=== PATIENT | female | born 1945 | race Caucasian/White ===

== ENCOUNTER 2016-09-27 12:54 | Emergency (ER) | payer MEDICARE ==
[2016-09-27] MEDS ORDERED: FAMOTIDINE 20 MG TABLET PO ONE (13:00)
--- NOTE | 2016-09-27 13:03 | ER Document Report ---
ED Medical Screen (RME) - General Stated Complaint: POSSIBLE ALLERGIC REACTION Mode of Arrival: Ambulatory Information source: Patient Notes: 71 y/o F presents to ED c/o possible allergic reaction. Pt reports ate pancakes this mornign and subsequently developed hives and feeling like her throat was closing up. States nona to urgent care where she received 10 mg Dexamethasone and 50 mg Benadryl IM and referred to ED via EMS. States feels like she is improving. I have greeted and performed a rapid initial assessment of this patient. A comprehensive ED assessment and evaluation of the patient, analysis of test results and completion of the medical decision making process will be conducted by additional ED providers. Physical Exam - General General appearance: Appears well, Alert In distress: None - Respiratory Respiratory status: No respiratory distress
--- NOTE | 2016-09-27 15:24 | ER Document Report ---
ED General - General Chief Complaint: Allergic Reaction Stated Complaint: POSSIBLE ALLERGIC REACTION Mode of Arrival: Medic Information source: Patient Notes: Patient presents emergency department post allergic reaction. Patient reports that that this morning she ate pancakes. She reports her immediately her head start feeling congested she started sneezing and her throat/uvula started swelling. Patient reports she immediately went to urgent care by the time she reached urgent care she could not talk. She also reports the palms of her hands turned beet red. Urgent care gave her 50 mg of Medrol, 10 mg of Decadron and breathing treatment. Upon arrival to the hospital she was given 40 mg of Pepcid. Patient reports she feels much better now. She reports she has no trouble breathing and but feels like something is blocking her airway on the way out. No hives now. Patient also reports approximately 1 month ago she did have pancakes and experienced some head congestion at that time. She reports no problems breathing. TRAVEL OUTSIDE OF THE [place] IN LAST 30 DAYS: No - HPI Onset: Just prior to arrival Onset/Duration: Sudden Quality of pain: No pain Associated symptoms: None Exacerbated by: Denies Relieved by: Denies Similar symptoms previously: No Recently seen / treated by doctor: No - Related Data Allergies/Adverse Reactions: shellfish derived Allergy (Verified 09/27/16 13:03) Past Medical History - General Information source: Patient Last Menstrual Period: menopause - Social History Smoking Status: Never Smoker Cigarette use (# per day): No Frequency of alcohol use: None Drug Abuse: None Lives with: Family Family History: Reviewed & Not Pertinent Patient has suicidal ideation: No Patient has homicidal ideation: No - Past Medical History Cardiac Medical History: Reports: Hx Hypertension Renal/ Medical History: Denies: Hx Peritoneal Dialysis GI Medical History: Reports: Hx Gastroesophageal Reflux Disease Surgical Hx: Negative Review of Systems - Review of Systems Notes: Review HPI for review of systems., All other systems negative Physical Exam - Vital signs Vitals: Temp Pulse Resp BP Pulse Ox 97.7 F 77 18 148/71 H 99 09/27/16 13:03 09/27/16 13:03 09/27/16 13:03 09/27/16 13:03 09/27/16 13:03 - Notes Notes: PHYSICAL EXAMINATION: GENERAL: Well-appearing and in no acute distress nontoxic looking, speaking in clear voice HEAD: Atraumatic, normocephalic. EYES: Pupils equal round extraocular movements intact, sclera anicteric, conjunctiva are normal. ENT: nares patent, oropharynx clear without exudates. Moist mucous membranes. uvula elongated, good airway NECK: Normal range of motion, supple without lymphadenopathy LUNGS: CTAB and equal. No wheezes rales or rhonchi. no cough HEART: Regular rate and rhythm without murmurs ABDOMEN: Soft, no tenderness. No guarding, no rebound EXTREMITIES: Normal range of motion, no pitting edema. No cyanosis. NEUROLOGICAL: Cranial nerves grossly intact. Normal sensory/motor PSYCH: Normal mood, normal affect. SKIN: Warm, Dry, normal turgor, no rashes or lesions noted, no hives noted Course - Re-evaluation Re-evalutation: 09/27/16 16:30 Patient speaking in clear voice no distress drinking jessica britni. 09/27/16 16:52 Soft tissue neck with good airway, pt reports she is feeling much better. Discussed allergies. Discussed Benadryl and importance of follow-up tomorrow for allergy testing. 09/27/16 16:58 I have consulted the attending provider Dr Bermudez per [facility] guidelines - Vital Signs Vital signs: Temp Pulse Resp BP Pulse Ox 97.7 F 70 20 137/66 H 99 09/27/16 13:03 09/27/16 17:14 09/27/16 17:14 09/27/16 17:14 09/27/16 17:14 - Diagnostic Test Radiology reviewed: Image reviewed, Reports reviewed Discharge - Discharge Clinical Impression: elevated blood pressure Allergic reaction Qualifiers: Encounter type: initial encounter Qualified Code(s): T78.40XA - Allergy, unspecified, initial encounter Condition: Stable Disposition: HOME, SELF-CARE Instructions: Acute Allergic Reaction ([facility]), Epinephrine, Use of Diphenhydramine Additional Instructions: *You have been evaluated for allergic reaction *Take benadryl as indicated for the next 24 hours *Avoid foods that you may have an allergic reaction to *Use epi pen for emergencies *Follow-up with your primary care provider tomorrow for 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 *Return to ED for worsening condition change, needs, trouble breathing Prescriptions: Epinephrine [Epipen 2-Omari] 0.3 mg IM ONCE PRN #1 packet PRN Reason: Forms: Elevated Blood Pressure Referrals: VICKI,JAN SWEAT BAND SEPARATOR [Primary Care Provider] - Follow up tomorrow
[2016-09-27 17:14] VITALS: BP 137/66
== END 2016-09-27 17:13 | disposition home or self-care (01) ==
LOC: ER 12:54
DX: T78.40XA Allergy, unspecified, initial encounter (principal); R06.7 Sneezing; R09.89 Other specified symptoms and signs involving the circulatory and respiratory systems; X58.XXXA Exposure to other specified factors, initial encounter; I10 Essential (primary) hypertension; Z91.013 Allergy to seafood
CPT/HCPCS: 99283; 70360; A9270

== ENCOUNTER 2017-04-23 22:30 | Emergency (ER) | payer MEDICARE ==
[2017-04-23 23:04] VITALS: BP 145/68
[2017-04-24] MEDS ORDERED: NORMAL SALINE 1000 ML 1,000 ML IV PRN (01:08)
[2017-04-24] MEDS ORDERED: ACETAMINOPHEN 325 MG TABLET PO ONE (01:09)
[2017-04-24] MEDS ORDERED: METOCLOPRAMIDE HCL INJ/PF 10 MG/2 ML SDV IV ONE (01:09)
[2017-04-24] MEDS ORDERED: DIPHENHYDRAMINE HCL 50 MG/ML VIAL IV ONE (01:09)
--- NOTE | 2017-04-24 01:10 | ER Document Report ---
ED General - General Chief Complaint: Headache Stated Complaint: WEAKNESS Time Seen by Provider: 04/24/17 00:37 Mode of Arrival: Ambulatory Information source: Patient Notes: This is a 71-year-old female with a history of hypertension and dyslipidemia who presents to the emergency room with a 2 day history of nausea, vomiting, diarrhea and generalized weakness. Patient denies abdominal pain. Patient denies chest pain. Patient denies fever. Patient denies blood in the stool. Medications: Atorvastatin, losartan, hydrochlorothiazide, vitamin D TRAVEL OUTSIDE OF THE [place] IN LAST 30 DAYS: No - HPI Onset: Yesterday Onset/Duration: Gradual Quality of pain: No pain Severity: None Pain Level: Denies Associated symptoms: Diarrhea, Nausea, Vomiting, Weakness. denies: Chest pain, Fever, Shortness of breath Exacerbated by: Denies Relieved by: Denies Similar symptoms previously: Yes Recently seen / treated by doctor: No - Related Data Allergies/Adverse Reactions: shellfish derived Allergy (Verified 04/23/17 23:00) Past Medical History - General Information source: Patient - Social History Smoking Status: Never Smoker Cigarette use (# per day): No Chew tobacco use (# tins/day): No Frequency of alcohol use: None Drug Abuse: None Lives with: Spouse/Significant other Family History: Reviewed & Not Pertinent Patient has suicidal ideation: No Patient has homicidal ideation: No - Past Medical History Cardiac Medical History: Reports: Hx Hypercholesterolemia, Hx Hypertension Pulmonary Medical History: Reports: None EENT Medical History: Reports: None Neurological Medical History: Reports: None Endocrine Medical History: Reports: None Renal/ Medical History: Denies: Hx Peritoneal Dialysis Malignancy Medical History: Reports: None GI Medical History: Reports: Hx Gastroesophageal Reflux Disease Musculoskeltal Medical History: Reports None Skin Medical History: Reports None Psychiatric Medical History: Reports: None Traumatic Medical History: Reports: None Infectious Medical History: Reports: None Past Surgical History: Reports: Hx Cholecystectomy, Hx Tubal Ligation, Other - Neck biopsy Review of Systems - Review of Systems Constitutional: Weakness. denies: Chills, Fever EENT: No symptoms reported Cardiovascular: No symptoms reported Respiratory: No symptoms reported Gastrointestinal: See HPI, Abdominal pain, Vomiting Genitourinary: No symptoms reported Female Genitourinary: No symptoms reported Musculoskeletal: No symptoms reported Skin: No symptoms reported Hematologic/Lymphatic: No symptoms reported Neurological/Psychological: See HPI Physical Exam - Vital signs Vitals: Temp Pulse Resp BP Pulse Ox 97.6 F 92 16 145/68 H 100 04/23/17 23:01 04/23/17 23:01 04/23/17 23:01 04/23/17 23:01 04/23/17 23:01 Notes: Physical exam: GENERAL: 71-year-old female, alert and oriented 3, no acute distress HEAD: Atraumatic, normocephalic. EYES: Pupils equal round and reactive to light, extraocular movements intact, sclera anicteric, conjunctiva are normal. ENT: TMs normal, nares patent, oropharynx clear without exudates. Moist mucous membranes. NECK: Normal range of motion, supple without lymphadenopathy or JVD. LUNGS: Breath sounds clear to auscultation bilaterally and equal. No wheezes rales or rhonchi. HEART: Regular rate and rhythm without murmurs, rubs or gallops. ABDOMEN: Soft, normoactive bowel sounds. No tenderness to palpation. No guarding, no rebound. No masses appreciated. EXTREMITIES: Normal range of motion, no pitting or edema. No clubbing or cyanosis. NEUROLOGICAL: Cranial nerves II through XII grossly intact. Normal speech, normal gait. PSYCH: Normal mood, normal affect. SKIN: Warm, Dry, normal turgor, no rashes or lesions noted. Course - Re-evaluation Re-evalutation: The patient is feeling better after IV fluids, Reglan, Benadryl and Tylenol. I did explain the hypokalemia she was given some potassium and I will send her home on a few days worth of potassium. I have advised her to follow-up with her primary care doctor. I have given her a copy of today's labs to bring with her when she sees her primary care doctor. 04/24/17 03:23 - Vital Signs Vital signs: Temp Pulse Resp BP Pulse Ox 97.6 F 92 16 145/68 H 100 04/23/17 23:01 04/23/17 23:01 04/23/17 23:01 04/23/17 23:01 04/23/17 23:01 - Laboratory Result Diagrams: 04/24/17 01:37 04/24/17 01:37 Laboratory results interpreted by me: 04/24/17 04/24/17 04/24/17 01:37 01:37 01:37 WBC 10.7 H Hgb 11.5 L Hct 33.6 L Potassium 3.1 L Urine Blood SMALL H Ur Leukocyte Esterase TRACE H - EKG Interpretation by Me Rate: Normal Rhythm: NSR - EKG shows normal sinus rhythm with a ventricular rate of 70, no acute ST-T wave changes Discharge - Discharge Clinical Impression: Dehydration, Hypokalemia, Diarrhea, Vomiting with nausea Condition: Stable Disposition: HOME, SELF-CARE Instructions: Antinausea Medication ([facility]), Reglan ([facility]) Additional Instructions: Recommendations: Rest, drink plenty of fluids, take Reglan for nausea. Take the potassium daily for the next few days. Follow-up with Cheryl Garcia: Bring a copy of today's labs with you when you go. Prescriptions: Metoclopramide HCl [Reglan 10 mg Tablet] 1 - 2 tab PO ASDIR PRN #25 tablet PRN Reason: Potassium Bicarbonate/Cit AC [Potassium 25 Meq Tablet Eff] 25 meq PO DAILY #7 tablet.eff Referrals: CHERYL GARCIA, MUSCULOSKELETAL PHYSICIAN [Primary Care Provider] - Follow up in 3-5 days
[2017-04-24 01:49] LABS: ABSOLUTE BASOPHILS # (AUTO) 0.1 10^3/uL (0.0-0.2); ABSOLUTE EOSINOPHILS # (AUTO) 0.2 10^3/uL (0.0-0.6); ABSOLUTE LYMPHOCYTES (AUTO) 2.5 10^3/uL (0.5-4.7); ABSOLUTE MONOCYTES (AUTO) 0.6 10^3/uL (0.1-1.4); ABSOLUTE NEUT (AUTO) 7.3 10^3/uL (1.7-8.2); BASOPHILS % (AUTO) 0.9 % (0-2); EOSINOPHILS % (AUTO) 1.8 % (0-6); HEMATOCRIT 33.6 % (36.0-47.0); HEMOGLOBIN 11.5 g/dL (12.0-15.5); HGB HCT DIFFERENCE 0.9; LYMPHOCYTES % (AUTO) 23.6 % (13-45); MEAN CORPUSCULAR HEMOGLOBIN 30.3 pg (27.0-33.4); MEAN CORPUSCULAR HGB CONC 34.1 g/dL (32.0-36.0); MEAN CORPUSCULAR VOLUME 89 fl (80-97); MONOCYTES % (AUTO) 5.6 % (3-13); RED BLOOD COUNT 3.79 10^6/uL (3.72-5.28); RED CELL DISTRIBUTION WIDTH 12.9 % (11.5-14.0); SEGMENTED NEUTROPHILS % (AUTO) 68.1 % (42-78); WHITE BLOOD COUNT 10.7 10^3/uL (4.0-10.5)
[2017-04-24 01:53] LABS: APPEARANCE,URINE CLEAR; BILIRUBIN,URINE NEGATIVE (NEGATIVE); GLUCOSE, URINE NEGATIVE (NEGATIVE); KETONES,URINE NEGATIVE (NEGATIVE); LEUKOCYTE ESTERASE,URINE TRACE (NEGATIVE); NITRITE,URINE NEGATIVE (NEGATIVE); PROTEIN,URINE NEGATIVE (NEGATIVE); URINE SPECIFIC GRAVITY 1.009; UROBILINOGEN,URINE NEGATIVE mg/dL (<2.0)
[2017-04-24 02:00] LABS: ALANINE AMINOTRANSFERASE 28 U/L (9-52); ALBUMIN 4.5 g/dL (3.5-5.0); ALKALINE PHOSPHATASE 112 U/L (38-126); ANION GAP 11 (5-19); ASPARTATE AMINO TRANSFERASE 31 U/L (14-36); BILIRUBIN,DIRECT 0.3 mg/dL (0.0-0.4); BILIRUBIN,TOTAL 0.9 mg/dL (0.2-1.3); BLOOD UREA NITROGEN 16 mg/dL (7-20); CALCIUM 10.1 mg/dL (8.4-10.2); CARBON DIOXIDE 28 mmol/L (22-30); CHLORIDE 102 mmol/L (98-107); CREATININE RESULT 0.59 mg/dL (0.52-1.25); GLUCOSE 108 mg/dL (75-110); POTASSIUM 3.1 mmol/L (3.6-5.0); SODIUM 141.4 mmol/L (137-145); TOTAL PROTEIN 7.6 g/dL (6.3-8.2)
[2017-04-24] MEDS ORDERED: POTASSIUM CHLORIDE 20 MEQ/15 ML UDCUP PO ONE (03:10)
--- NOTE | 2017-04-24 07:40 | EKG REPORT ---
SEVERITY:- BORDERLINE ECG - SINUS RHYTHM : Confirmed by: Himanshu Holloway MD 24-Apr-2017 07:38:52
== END 2017-04-24 03:57 | disposition home or self-care (01) ==
LOC: ER 22:30
DX: E86.0 Dehydration (principal); E87.6 Hypokalemia; R19.7 Diarrhea, unspecified; R11.2 Nausea with vomiting, unspecified; R51 Headache; R53.1 Weakness; I10 Essential (primary) hypertension; E78.5 Hyperlipidemia, unspecified
CPT/HCPCS: 93005; 99284; 96361; 96374; 96375; 36415; 85025; 80053; 81001; 93010; A9270 ×2; J1200; J2765; J7030

== ENCOUNTER 2017-04-26 06:56 | Observation (INO) | payer MEDICARE ==
--- NOTE | 2017-04-26 07:17 | ER Document Report ---
ED General - General Mode of Arrival: Medic Information source: Patient, Emergency Med Personnel TRAVEL OUTSIDE OF THE [place] 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 Patient was walking from the kitchen to the living room and was eased on to the cough by her because she told him she was going ot pass out. Patient was seen and evaluated in the ED on Wednesday for nausea, vomiting and diarrhea. Since then patient has been taking [place]. She did not take any yesterday. She states her stools are now black. Yesterday she had 6 episodes of diarrhea, 3 of then immediately after eating. (YANY CHOI) - Related Data Allergies/Adverse Reactions: shellfish derived Allergy (Verified 04/26/17 07:15) Home Medications: Current Home Medications Atorvastatin Calcium 40 mg PO DAILY 04/26/17 [History] Hydrochlorothiazide [Hydrochlorothiazide] 1 tab PO DAILY 04/26/17 [History] Losartan Potassium 25 mg PO DAILY 04/26/17 [History] Metoclopramide HCl [Reglan 10 mg Tablet] 1 tab PO ASDIR PRN 04/26/17 [History] Past Medical History - General Information source: Patient - Social History Smoking Status: Never Smoker Family History: Reviewed & Not Pertinent - Past Medical History Cardiac Medical History: Reports: Hx Hypercholesterolemia, Hx Hypertension Renal/ Medical History: Denies: Hx Peritoneal Dialysis GI Medical History: Reports: Hx Gastroesophageal Reflux Disease Past Surgical History: Reports: Hx Cholecystectomy, Hx Tubal Ligation, Other - Neck biopsy <YANY CHOI - Last Filed: 04/26/17 10:54> Review of Systems - Review of Systems Constitutional: See HPI, Weakness EENT: No symptoms reported Cardiovascular: See HPI, Syncope - near, Dizziness Respiratory: No symptoms reported Gastrointestinal: See HPI, Abdominal pain, Diarrhea, Nausea, Vomiting, Black stools Genitourinary: No symptoms reported Female Genitourinary: No symptoms reported Musculoskeletal: No symptoms reported Skin: No symptoms reported Hematologic/Lymphatic: No symptoms reported Neurological/Psychological: See HPI, Weakness <AYNY CHOI - Last Filed: 04/26/17 10:54> Physical Exam - General General appearance: Appears well, Alert In distress: None - HEENT Head: Normocephalic, Atraumatic Eyes: Normal Extraocular movements intact: Yes Pupils: PERRL - Respiratory Respiratory status: No respiratory distress Breath sounds: Normal - Cardiovascular Rhythm: Regular Heart sounds: Normal auscultation Murmur: No - Abdominal Tenderness: Tender - epigastric - Rectal Stool: Black - Back Back: Normal - Extremities General upper extremity: Normal inspection, Normal ROM General lower extremity: Normal inspection, Normal ROM. No: Edema - Neurological Neuro grossly intact: Yes Sensory: Normal - Psychological Associated symptoms: Normal affect, Normal mood - Skin Skin Temperature: Warm Skin Moisture: Dry Skin Color: Normal <JIMBOYANY - Last Filed: 04/26/17 10:54> - Vital signs Vitals: Temp Pulse Resp BP Pulse Ox 97.9 F 78 18 123/65 95 04/26/17 07:00 04/26/17 07:00 04/26/17 07:00 04/26/17 07:00 04/26/17 07:00 Course - Laboratory Result Diagrams: 04/26/17 07:08 04/26/17 07:08 - Consults Time consulted: 10:54 Dr. Munoz Time consulted: 10:55 Consulted provider: will see as inpatient Dr. Theodore Time consulted: 10:56 Consulted provider: will see as inpatient <JIMBOYANY - Last Filed: 04/26/17 10:54> - Laboratory Result Diagrams: 04/26/17 07:08 04/26/17 07:08 - EKG Interpretation by Vt EKG shows normal: Sinus rhythm, [place], Intervals, QRS Complexes, ST-T Waves Rate: Normal - 81 Rhythm: NSR - Consults Dr. Munoz Consulted provider: will see as inpatient Dr. Theodore Consulted provider: will come to ER <ARIADNE SPARKS - Last Filed: 04/26/17 10:59> - Re-evaluation Re-evalutation: 04/26/17 09:45 The patient's hemoglobin is actually higher today than it was 2 days ago. The epigastric pain improved with the GI cocktail but there is still some tenderness. She has not had any diarrhea at this point. She has had 1 L of fluid so far. 04/26/17 10:49 The second GI cocktail took the epigastric pain away. She is feeling better at this time. (ARIADNE SPARKS) - Vital Signs Vital signs: Temp Pulse Resp BP Pulse Ox 97.9 F 78 21 H 138/66 H 96 04/26/17 07:00 04/26/17 07:00 04/26/17 10:03 04/26/17 09:01 04/26/17 10:03 - Laboratory Laboratory results interpreted by me: 04/26/17 07:08 Potassium 3.5 L Glucose 111 H Calcium 10.3 H - Consults Reason for consultation: 04/26/17 10:[address] Munoz is agreeable, call Dr. Theodore. (YANY CHOI) Dr. Munoz Reason for consultation: 04/26/17 10:55 Discussed patient. He is agreeable to see the patient in consultation for upper endoscopy. (YANY CHOI) Dr. Theodore Reason for consultation: 04/26/17 10:56 Discussed patient. Patient is accepted for admission (YANY CHOI) 04/26/17 10:58 Admit to IMCU. (ARIADNE SPARKS) Discharge <YANY CHOI - Last Filed: 04/26/17 10:54> - Discharge Admitting Provider: Hospitalist Unit Admitted: IMCU <ARIADNE SPARKS - Last Filed: 04/26/17 10:59> - Discharge Clinical Impression: Nausea, vomiting and diarrhea, Heme positive stool, Epigastric pain, Dehydration Condition: Stable Disposition: ADMITTED INPATIENT Scribe Attestation: 04/26/17 09:46 I personally performed the services described in the documentation, reviewed and edited the documentation which was dictated to the scribe in my presence, and it accurately records my words and actions. (ARIADNE SPARKS) Scribe Documentation - Scribe Written by Scribe:: jaylen Hector, 04/26/2017, 0720 acting as scribe for :: Luisana <YANY CHOI - Last Filed: 04/26/17 10:54>
[2017-04-26 07:28] LABS: ABSOLUTE BASOPHILS # (AUTO) 0.1 10^3/uL (0.0-0.2); ABSOLUTE EOSINOPHILS # (AUTO) 0.1 10^3/uL (0.0-0.6); ABSOLUTE LYMPHOCYTES (AUTO) 1.6 10^3/uL (0.5-4.7); ABSOLUTE MONOCYTES (AUTO) 0.4 10^3/uL (0.1-1.4); ABSOLUTE NEUT (AUTO) 4.6 10^3/uL (1.7-8.2); BASOPHILS % (AUTO) 1.1 % (0-2); HEMATOCRIT 36.7 % (36.0-47.0); HEMOGLOBIN 12.7 g/dL (12.0-15.5); HGB HCT DIFFERENCE 1.4; MEAN CORPUSCULAR HEMOGLOBIN 30.3 pg (27.0-33.4); MEAN CORPUSCULAR HGB CONC 34.6 g/dL (32.0-36.0); MEAN CORPUSCULAR VOLUME 88 fl (80-97); RED BLOOD COUNT 4.19 10^6/uL (3.72-5.28); RED CELL DISTRIBUTION WIDTH 13.2 % (11.5-14.0); SEGMENTED NEUTROPHILS % (AUTO) 67.9 % (42-78); WHITE BLOOD COUNT 6.8 10^3/uL (4.0-10.5)
[2017-04-26 07:35] LABS: ALANINE AMINOTRANSFERASE 35 U/L (9-52); ALBUMIN 4.4 g/dL (3.5-5.0); ALKALINE PHOSPHATASE 109 U/L (38-126); ANION GAP 9 (5-19); ASPARTATE AMINO TRANSFERASE 32 U/L (14-36); BILIRUBIN,DIRECT 0.3 mg/dL (0.0-0.4); BILIRUBIN,TOTAL 0.9 mg/dL (0.2-1.3); BLOOD UREA NITROGEN 20 mg/dL (7-20); CALCIUM 10.3 mg/dL (8.4-10.2); CARBON DIOXIDE 28 mmol/L (22-30); CHLORIDE 102 mmol/L (98-107); CREATININE RESULT 0.66 mg/dL (0.52-1.25); GLUCOSE 111 mg/dL (75-110); POTASSIUM 3.5 mmol/L (3.6-5.0); SODIUM 139.4 mmol/L (137-145); TOTAL PROTEIN 7.4 g/dL (6.3-8.2)
[2017-04-26] MEDS ORDERED: RINGERS SOLUTION,LACTATED 1,000 ML IV ONE ×2 (08:10→09:43)
[2017-04-26] MEDS ORDERED: MAG HYDROX/AL HYDROX/SIMETH SUSP 30 ML UDCUP PO ONE ×2 (08:11→09:43)
[2017-04-26] MEDS ORDERED: ONDANSETRON HCL INJ/PF 4 MG/2 ML SDV IV ONE (08:11)
[2017-04-26] MEDS ORDERED: LIDOCAINE 2% VISCOUS SOLN 20 ML UDCUP PO ONE ×2 (08:11→09:43)
[2017-04-26] MEDS ORDERED: PANTOPRAZOLE SODIUM 40 MG VIAL IV ONE (08:11)
--- NOTE | 2017-04-26 08:46 | EKG REPORT ---
SEVERITY:- NORMAL ECG - SINUS RHYTHM : Confirmed by: Juliocesar Delacruz 26-Apr-2017 08:45:13
[2017-04-26] MEDS ORDERED: ALBUTEROL SULFATE 0.083% NEB 2.5 MG/3 ML AMPUL NEB PRN (11:44)
[2017-04-26] MEDS ORDERED: NORMAL SALINE 1000 ML 1,000 ML IV PRN (11:44)
[2017-04-26] MEDS ORDERED: ONDANSETRON 4 MG TAB.RAPDIS PO PRN (11:44)
[2017-04-26] MEDS ORDERED: ONDANSETRON HCL INJ/PF 4 MG/2 ML SDV IV PRN (11:44)
[2017-04-26] MEDS ORDERED: ACETAMINOPHEN 325 MG TABLET PO PRN (11:44)
--- NOTE | 2017-04-26 12:02 | PDOC H&P ---
History of Present Illness Admission Date/PCP: 04/26/17 11:21 Patient complains of: Abdominal pain with black stool History of Present Illness: ZENA ALEXANDER is a 71 year old female who presents with epigastric pain and black tarry stool. Patient reports that on Wednesday she had some nausea and diarrhea presented to emergency room was given fluids and Reglan and sent home. Patient reports that Wednesday she had an episode of melena and this morning she stood up and felt lightheaded and almost passed out but did not. She reports that she does take Motrin 2 tablets a day for her shoulder. The patient was found to have melanotic stool in the emergency room however hemoglobin and blood pressure have been stable. Patient denies any complete loss of consciousness. Denies any chest pain or palpitations. Denies any shortness of breath. Past Medical History Cardiac Medical History: Reports: Hyperlipidema, Hypertension Pulmonary Medical History: Reports: None EENT Medical History: Reports: None Neurological Medical History: Reports: None Endocrine Medical History: Reports: None Renal/ Medical History: Reports: None Malignancy Medical History: Reports: None GI Medical History: Reports: Gastroesophageal Reflux Disease - History of peptic ulcer disease at age 19 Musculoskeltal Medical History: Reports: Arthritis Skin Medical History: Reports: None Psychiatric Medical History: Reports: None Traumatic Medical History: Reports: None Hematology: Reports: None Infectious Medical History: Reports: None Past Surgical History Past Surgical History: Reports: Cholecystectomy, Tubal Ligation, Other - Neck biopsy Social History Information Source: Patient Lives with: Spouse/Significant other Smoking Status: Never Smoker Frequency of Alcohol Use: None Hx Recreational Drug Use: No Drugs: None Hx Prescription Drug Abuse: No - Advance Directive Resuscitation Status: Full Code Surrogate healthcare decision maker:: Family History Family History: Mother at age 86 with a CVA. She also was diagnosed with lung cancer age 50. She is also diagnosed with gastric cancer in her 60s. Also had coronary artery disease. Father at age 41 with COPD. She has a brother who had stomach cancer. Parental Family History Reviewed: Yes Children Family History Reviewed: No Sibling(s) Family History Reviewed.: No Medication/Allergy Home Medications: Epinephrine [Epipen 2-Omari] 0.3 mg IM ONCE PRN #1 packet 09/27/16 Potassium Bicarbonate/Cit AC [Potassium 25 Meq Tablet Eff] 25 meq PO DAILY #7 tablet.eff 04/24/17 Atorvastatin Calcium 40 mg PO DAILY 04/26/17 Hydrochlorothiazide [Hydrochlorothiazide] 1 tab PO DAILY 04/26/17 Losartan Potassium 25 mg PO DAILY 04/26/17 Metoclopramide HCl [Reglan 10 mg Tablet] 1 tab PO ASDIR PRN 04/26/17 Allergies/Adverse Reactions: shellfish derived Allergy (Verified 04/26/17 07:15) Review of Systems Constitutional: ABSENT: chills, fever(s), headache(s), weight gain, weight loss Eyes: ABSENT: visual disturbances Ears: ABSENT: hearing changes Cardiovascular: ABSENT: chest pain, dyspnea on exertion, edema, orthropnea, palpitations Respiratory: ABSENT: cough, hemoptysis Gastrointestinal: PRESENT: abdominal pain - Epigastric pain, diarrhea, melena, nausea, vomiting Genitourinary: ABSENT: dysuria, hematuria Musculoskeletal: ABSENT: joint swelling Integumentary: ABSENT: rash, wounds Neurological: ABSENT: abnormal gait, abnormal speech, confusion, dizziness, focal weakness, syncope Psychiatric: ABSENT: anxiety, depression Endocrine: ABSENT: cold intolerance, heat intolerance, polydipsia, polyuria Hematologic/Lymphatic: ABSENT: easy bleeding, easy bruising Physical Exam Vital Signs: Temp Pulse Resp BP Pulse Ox 97.9 F 78 18 145/81 H 96 04/26/17 07:00 04/26/17 07:00 04/26/17 11:01 04/26/17 11:01 04/26/17 11:01 General appearance: PRESENT: no acute distress, well-developed, well-nourished Head exam: PRESENT: atraumatic, normocephalic Eye exam: PRESENT: conjunctiva pink, EOMI, PERRLA. ABSENT: scleral icterus Ear exam: PRESENT: normal external ear exam Mouth exam: PRESENT: moist, tongue midline Neck exam: ABSENT: carotid bruit, JVD, lymphadenopathy, thyromegaly Respiratory exam: PRESENT: clear to auscultation anuel. ABSENT: rales, rhonchi, wheezes Cardiovascular exam: PRESENT: RRR. ABSENT: diastolic murmur, rubs, systolic murmur Pulses: PRESENT: normal dorsalis pedis pul Vascular exam: PRESENT: normal capillary refill GI/Abdominal exam: PRESENT: normal bowel sounds, soft, tenderness - Mild epigastric tenderness. ABSENT: distended, guarding, mass, organolmegaly, rebound Rectal exam: PRESENT: black stool, heme (+) stool Extremities exam: ABSENT: calf tenderness, clubbing, pedal edema Neurological exam: PRESENT: alert, awake, oriented to person, oriented to place , oriented to time, oriented to situation, CN II-XII grossly intact. ABSENT: motor sensory deficit Psychiatric exam: PRESENT: appropriate affect Skin exam: PRESENT: dry, intact, warm. ABSENT: cyanosis, rash Assessment & Plan - Diagnosis (1) GI bleed Is this a current diagnosis for this admission?: Yes Plan: The patient has a history of peptic ulcer disease this age 19 with bleeding at that time. This the most likely cause. She has been taking Motrin 2 tablets daily for her shoulder pain. Patient is getting IV fluids and IV Protonix. Patient has been evaluated by surgery he was going to perform an EGD today. She does have a family history of gastric cancer and the possibility of this being the cause is considered but unlikely. (2) Hypertension Is this a current diagnosis for this admission?: Yes Plan: Continue with the losartan and hydrochlorothiazide. (3) Gastroesophageal reflux disease Is this a current diagnosis for this admission?: Yes Plan: She is on Protonix. (4) Hyperlipidemia Is this a current diagnosis for this admission?: Yes Plan: Continue with Lipitor. - Time Time Spent: 50 to 70 Minutes - Plan Summary Plan Summary: Patient is admitted as observation.
--- NOTE | 2017-04-26 12:03 | CONSULTATION REPORT E ---
Consultation Report NAME: ZENA ALEXANDER : 1945 AGE: 71Y DATE: 04/26/2017 ROOM: ED15 A TO: ONEAL BHAKTA M.D. FROM: ARIADNE SPARKS M.D. Requesting Physician CHIEF COMPLAINT: GI bleed. REPORT CONSULTATION: The patient is a 71-year-old white female, previously healthy, with approximately 4-day history of abdominal pain, nausea, 1 episode of vomiting, and loose stools. She was seen in the emergency department for similar complaints, given GI cocktail and discharged home. She initially felt better, then symptoms worsened today when she had a near-syncopal episode. She was brought back to the emergency department where she was evaluated, found to be hemodynamically stable, with a 1.5-gram elevation in her hemoglobin to 12.7. Examination by the emergency room staff revealed heme-positive dark stool. Patient was admitted to the Medical Service with General Surgery consulting for endoscopic evaluation. According to the patient, she underwent colonoscopy x2, most recently 3 years ago in [place], [place] with excellent study and no pathologic findings by her verbal report. Of note, past family history is significant for stomach malignancy in her brother who as a result of same diagnosis in mid 50s and mother who also survived gastric cancer to of a stroke. Past medical and surgical history came from history and physical documented, including hypertension, cholesterolemia. ALLERGIES: Include SHELLFISH. MEDICATIONS: Include antihypertensive and anti-cholesterol medication. PAST SURGICAL HISTORY: Significant for open cholecystectomy, open tubal ligation, open left submandibular gland resection. SOCIAL HISTORY: The patient does not smoke. FAMILY HISTORY: As per HPI. REVIEW OF SYSTEMS: CONSTITUTIONAL: Patient denies. CARDIOVASCULAR: Patient denies. GASTROINTESTINAL: As per HPI. NEUROLOGIC: Patient denies. PHYSICAL EXAMINATION: GENERAL: The patient is examined in the emergency department. She is in no acute distress. VITAL SIGNS: Stable. PSYCHIATRIC: Alert and oriented x4. HEENT: Eyes without icterus. Oropharynx clear. Mucous membranes dry. NECK: No adenopathy. LUNGS: Diminished at the bases bilaterally. HEART: Without murmur or gallop. ABDOMEN: Soft. No peritoneal signs. Scars consistent with previous surgery. There is some tenderness in the epigastric area to deep palpation. EXTREMITIES: Upper and lower extremities without cyanosis, clubbing or edema. DIAGNOSTICS: Laboratory profile shows hemoglobin of 12.7. Electrolytes within normal limits. Calcium 10.3. IMPRESSION: 1. Abdominal pain, nausea, and near syncope. 2. Heme-positive stools. 3. Strong family history of stomach carcinoma. 4. Hypertension. 5. Hypercholesterolemia. RECOMMENDATIONS: Patient will be admitted to the Internal Medicine service, kept n.p.o. We will set patient up for upper endoscopy, possible biopsies later today. I have explained the rationale for the procedure as well as risks, benefits, and alternatives. I believe she understands and agrees to proceed. DICTATING PHYSICIAN: ONEAL BHAKTA M.D. [id number] PHY#: [id number] ID: [id number] JOB#: [id number] ACCT: [id number] cc:ARIADNE SPARKS M.D. ONEAL BHAKTA M.D. >
[2017-04-26] MEDS ORDERED: ONDANSETRON HCL INJ/PF 4 MG/2 ML SDV ONE (12:50)
[2017-04-26] MEDS ORDERED: GLYCOPYRROLATE INJ 0.4 MG/2 ML VIAL ONE (12:50)
[2017-04-26] MEDS ORDERED: NALOXONE HCL INJ/PF 0.4 MG/1 ML SDV ONE (12:50)
[2017-04-26] MEDS ORDERED: MIDAZOLAM 2 MG/2 ML INJ ONE (12:50)
[2017-04-26] MEDS ORDERED: GLUCAGON,HUMAN RECOMB 1 MG INJ ONE (12:51)
[2017-04-26] MEDS ORDERED: EPINEPHRINE INJ 1 MG/10 ML DISP.SYRIN ONE (12:51)
[2017-04-26] MEDS ORDERED: FENTANYL CITRATE INJ/PF 100 MCG/2 ML AMPUL ONE (12:51)
[2017-04-26] MEDS ORDERED: FLUMAZENIL INJ 0.5 MG/5 ML VIAL ONE (12:51)
--- NOTE | 2017-04-26 14:37 | OPERATIVE REPORT E ---
Operative Report NAME: ZEAN ALEXANDER : 1945 AGE: 71Y DATE OF SURGERY: 04/26/2017 ROOM: 324 PREOPERATIVE DIAGNOSES: 1. Heme-positive stools. 2. Family history of gastric cancer. POSTOPERATIVE DIAGNOSIS: Essentially normal esophagus, stomach and duodenum first and second portions. PROCEDURE: 1. Esophagogastroduodenoscopy. 2. Random biopsy of gastric antrum. SURGEON: ONEAL BHAKTA M.D. ANESTHESIA: Conscious sedation. COMPLICATIONS: None. ESTIMATED BLOOD LOSS: Minimal. DRAINS: None. TISSUE REMOVED: Cold forceps biopsy. SUMMARY OF PROCEDURE: Patient was brought up to the fifth floor endoscopy suite where IV sedation was induced. She was placed in a semirecumbent position, oral mouthpiece inserted. Surgical plan and surgical time out were conducted. The flexible adult upper endoscope was advanced through the oropharynx, down the esophagus, through the stomach and into the duodenum. This was very well tolerated by the patient. The second portion of the duodenum was visualized and the scope was slowly withdrawn, checking the mucosa carefully. There was no evidence of tumor, stricture, bleeding, clot, polyp or mass. The stomach was empty of any gastric contents. There was no hiatal hernia. There was minimal, if any, mild gastritis and a single cold forceps biopsy was taken of the gastric antrum. Bleeding was negligible. The specimen was sent to pathology for analysis and CLOtesting. The scope was retroflexed in the stomach, examining the GE junction from the distal side and, again, no pathology seen. The scope was withdrawn from the patient's GE junction. The Z line was at approximately 39 cm from the incisors. The scope was withdrawn through the esophagus. No other pathology seen. The scope was withdrawn from the patient's oropharynx. She tolerated the procedure well. There were no complications. DICTATING PHYSICIAN: ONEAL BHAKTA M.D. [id number] PHY#: [id number] ID: [id number] JOB#: [id number] ACCT: [id number] cc:ONEAL BHAKTA M.D. > [facility]
[2017-04-26] MEDS: PANTOPRAZOLE SODIUM 40 MG VIAL IV SCH (21:28)
[2017-04-26] MEDS ORDERED: ATORVASTATIN CALCIUM 40 MG TABLET PO SCH (22:00)
[2017-04-27 05:37] LABS: HEMATOCRIT 33.1 % (36.0-47.0); HEMOGLOBIN 11.4 g/dL (12.0-15.5); HGB HCT DIFFERENCE 1.1; MEAN CORPUSCULAR HEMOGLOBIN 30.2 pg (27.0-33.4); MEAN CORPUSCULAR HGB CONC 34.5 g/dL (32.0-36.0); MEAN CORPUSCULAR VOLUME 88 fl (80-97); RED BLOOD COUNT 3.77 10^6/uL (3.72-5.28); RED CELL DISTRIBUTION WIDTH 12.8 % (11.5-14.0); WHITE BLOOD COUNT 5.9 10^3/uL (4.0-10.5)
[2017-04-27 05:53] LABS: ANION GAP 7 (5-19); BLOOD UREA NITROGEN 11 mg/dL (7-20); CALCIUM 9.2 mg/dL (8.4-10.2); CARBON DIOXIDE 27 mmol/L (22-30); CHLORIDE 107 mmol/L (98-107); CREATININE RESULT 0.69 mg/dL (0.52-1.25); GLUCOSE 105 mg/dL (75-110); POTASSIUM 3.5 mmol/L (3.6-5.0); SODIUM 141.2 mmol/L (137-145)
--- NOTE | 2017-04-27 07:44 | Physician Advisory Note ---
Physician Advisor ProgressNote .: Pursuant to the plan for [facility], I have reviewed the medical record for this patient. Physician Advisor Statement: Status: [employer] pt appropriately brought in as Outpt Obs. Expectation of d/c likely on 04/27. If pt develops new, concerning clinical issues that require lengthening her hospitalization, please document clinical concerns explicitly. Thanks! CK
--- NOTE | 2017-04-27 09:05 | PDOC DISCHARGE SUMMARY ---
General - Admit/Disc Date/PCP Admission Date/Primary Care Provider: 04/26/17 11:44 Discharge Date: 04/27/17 - Discharge Diagnosis (1) Acute gastroenteritis Is this a current diagnosis for this admission?: Yes (2) Dehydration Is this a current diagnosis for this admission?: Yes (3) GI bleed Is this a current diagnosis for this admission?: Yes (4) Gastroesophageal reflux disease Is this a current diagnosis for this admission?: Yes (5) Hyperlipidemia Is this a current diagnosis for this admission?: Yes (6) Hypertension Is this a current diagnosis for this admission?: Yes - Additional Information Resuscitation Status: Full Code Discharge Diet: Cardiac - low fat, low salt Discharge Activity: Activity As Tolerated, Balance Activity w/Rest, Slowly Increase Activity Home Medications: Atorvastatin Calcium [Lipitor 40 mg Tablet] 40 mg PO DAILY 04/26/17 Baclofen [Baclofen 20 mg Tablet] 20 mg PO Q12HP PRN 04/26/17 Ergocalciferol (Vitamin D2) [Vitamin D2] 50,000 unit PO BRADSHAW@1000 04/26/17 Losartan Potassium [Cozaar 25 mg Tablet] 25 mg PO DAILY 04/26/17 Esomeprazole Mag Trihydrate [Nexium] 40 mg PO DAILY #30 capsule. 04/27/17 Levofloxacin [Levaquin 500 mg Tablet] 500 mg PO DAILY #5 tablet 04/27/17 Additional Information: Hold diuretics till re-evaluated by primary physician. Return to ER if symptoms recur. History of Present Illness Patient complains of: dark stools and abdominal pain History of Present Illness: ZENA ALEXANDER is a 71 year old female who presents with epigastric pain and black tarry stool. Patient reports that on Wednesday she had some nausea and diarrhea presented to emergency room was given fluids and Reglan and sent home. Patient reports that Wednesday she had an episode of melena and this morning she stood up and felt lightheaded and almost passed out but did not. She reports that she does take Motrin 2 tablets a day for her shoulder. The patient was found to have melanotic stool in the emergency room however hemoglobin and blood pressure have been stable. Patient denies any complete loss of consciousness. Denies any chest pain or palpitations. Denies any shortness of breath. Hospital Course Hospital Course: The patient was admitted to [facility]. Hemoglobin monitoring noted to be stable, compared to her baseline. Dr. Munoz was consulted for endoscopy and procedure was performed showing no active pathology. Her diarrhea eventually resolved. She was placed on IV proton pump inhibitor. Her abdominal pain resolved and symptomatically improved significantly the following morning. She was advised to avoid OTC NSAIDS. She was eventually D/C home with above instructions. She prefers to have prescription antibiotics if the diarrhea recurs again. She was given levaquin for 5 days but advised her still to go back to ED if sx recur. She was also advised not to take antibiotics if she has no diarrhea. Physical Exam Vital Signs: Temp Pulse Resp BP Pulse Ox 97.9 F 78 17 131/64 H 97 04/27/17 07:44 04/27/17 07:44 04/27/17 07:44 04/27/17 07:44 04/27/17 07:44 Intake & Output 04/26/17 04/27/17 04/28/17 06:59 06:59 06:59 Intake Total 3330 Balance 3330 Weight 74.2 kg General appearance: PRESENT: no acute distress, cooperative Head exam: PRESENT: normocephalic Eye exam: PRESENT: conjunctiva pink, EOMI Mouth exam: PRESENT: moist, neck supple Neck exam: ABSENT: JVD Respiratory exam: PRESENT: clear to auscultation anuel. ABSENT: rhonchi, wheezes Cardiovascular exam: PRESENT: RRR. ABSENT: gallop GI/Abdominal exam: PRESENT: hyperactive bowel sounds, soft. ABSENT: distended, tenderness Extremities exam: ABSENT: pedal edema Neurological exam: PRESENT: alert, awake, oriented to person, oriented to place , oriented to time, oriented to situation Skin exam: PRESENT: dry, warm. ABSENT: cyanosis Results Laboratory Results: 04/27/17 05:23 04/27/17 05:23 04/27/17 04/27/17 05:23 05:23 WBC 5.9 RBC 3.77 Hgb 11.4 L Hct 33.1 L MCV 88 MCH 30.2 MCHC 34.5 RDW 12.8 Plt Count 202 Sodium 141.2 Potassium 3.5 L Chloride 107 Carbon Dioxide 27 Anion Gap 7 BUN 11 Creatinine 0.69 Est GFR ( Amer) > 60 Est GFR (Non-Af Amer) > 60 Glucose 105 Calcium 9.2 Qualifiers PATEINT BEING DISCHARGED WITH ANY OF THE FOLLOWING DIAGNOSIS?: No Plan Discharge Plan: Follow-up w/ primary MD in 1 week. Time Spent: Less than 30 Minutes
[2017-04-27] MEDS: PANTOPRAZOLE SODIUM 40 MG VIAL IV SCH (09:46)
[2017-04-27] MEDS ORDERED: POTASSIUM CHLORIDE 10 MEQ TABLET.SA PO ONE (10:00)
[2017-04-27] MEDS ORDERED: HYDROCHLOROTHIAZIDE 25 MG TABLET PO SCH (10:00)
[2017-04-27] MEDS ORDERED: LOSARTAN POTASSIUM 25 MG TABLET PO SCH (10:00)
[2017-04-27 11:54] VITALS: BP 129/63
== END 2017-04-27 12:02 | disposition home or self-care (01) ==
LOC: ER 06:56 → UNDOADMOB 11:21 → INTOOBSV 11:21 → EH 11:21 → 3W 11:44 → EH 12:29
PROVIDERS: ADMIT Family Medicine; ATTEND Family Medicine
PROC: 0DB68ZX Excision of Stomach, Via Natural or Artificial Opening Endoscopic, Diagnostic (ICD-10-PCS; principal; 2017-04-26 13:30)
DX: K52.9 Noninfective gastroenteritis and colitis, unspecified (principal); K29.50 Unspecified chronic gastritis without bleeding; E86.0 Dehydration; K21.9 Gastro-esophageal reflux disease without esophagitis; E78.5 Hyperlipidemia, unspecified; I10 Essential (primary) hypertension; R55 Syncope and collapse; M25.519 Pain in unspecified shoulder; Z79.899 Other long term (current) drug therapy; Z80.0 Family history of malignant neoplasm of digestive organs; Z90.49 Acquired absence of other specified parts of digestive tract; Z98.51 Tubal ligation status; Z79.1 Long term (current) use of non-steroidal anti-inflammatories (NSAID); Z87.11 Personal history of peptic ulcer disease
CPT/HCPCS: 93005; 99285; 96375; 96365; 96366; 43239; 36415 ×2; 85025; 85027; 85610; 82272; 80048; 80053; 88342 ×2; 88305 ×2; 93010; G0378 ×3; J2250; A9270 ×3; J3010; J3490; C9113 ×2; J2405 ×2; J7030; J7120; J0171; J1610; J2310; S0119; S0164

== ENCOUNTER → 2017-07-02 | Outpatient (CLI) | payer MEDICARE ==
--- NOTE | 2017-07-02 14:04 | WOMENS IMAGING REPORT ---
EXAM DESCRIPTION: BONE DENSITY HIP/SPINE COMPLETED DATE/TIME: 07/02/2017 1:57 pm REASON FOR STUDY: OSTEOPROSIS; M89.9 M89.9 DISORDER OF BONE, UNSPECIFIED M94.9 DISORDER OF CARTILA GE, UNSPECIFIED COMPARISON: None. TECHNIQUE: Dual-Energy X-ray Absorptiometry (DEXA) of the AP Spine and Hip. LIMITATIONS: None. FINDINGS: LUMBAR SPINE: The bone mineral density (BMD) measured from L1-L4 in the AP projection correlates with a T-score of -0.4, which is normal as defined by the World Health Organization. HIP: The bone mineral density (BMD) measured in the left hip correlates with a T-score of -0.9, which is n ormal as defined by the World Health Organization. IMPRESSION: 1. LUMBAR SPINE: NORMAL. 2. HIP: NORMAL. COMMENT: The World Health Organization defines low BMD as follows: T-score: Normal: Greater than -1.0 Osteopenia: Between -1.0 and -2.5 Osteoporosis: Less than -2.5 without fractures Established osteoporosis: Less than -2.5 with fractures In general, you may wish to consider: Diagnosis Treatment Follow-up DEXA Normal BMD Prevention 2-3 years Osteopenia Prevention/Therapy 1-2 years Osteoporosis Therapy Yearly TECHNICAL DOCUMENTATION: JOB ID: [id number] [employer]- All Rights Reserved
== END ==
LOC: WI 13:37
PROVIDERS: ATTEND Nurse Practitioner
DX: M89.9 Disorder of bone, unspecified (principal); M94.9 Disorder of cartilage, unspecified
CPT/HCPCS: 77080

== ENCOUNTER → 2017-12-24 | Outpatient (CLI) | payer MEDICARE ==
--- NOTE | 2017-12-24 11:16 | WOMENS IMAGING REPORT ---
EXAM DESCRIPTION: 3D SCREENING MAMMO BILAT COMPLETED DATE/TIME: 12/24/2017 10:45 am REASON FOR STUDY: ROUTINE SCREENING;Z12.31 Z12.31 ENCNTR SCREEN MAMMOGRAM FOR MALIGNANT NEOPLASM OF [place] COMPARISON: None. TECHNIQUE: Standard craniocaudal and mediolateral oblique views of each breast recorded using digita l acquisition and breast tomosynthesis. LIMITATIONS: None. FINDINGS: No masses, calcifications or architectural distortion. No areas of suspicion. Read with the assistance of CAD. .[facility] - R2 Cenova Version 1.3 .[facility] Imaging - R2 Cenova Version 1.3 .[facility] Imaging - R2 Cenova Version 2.4 .[facility] - R2 Cenova Version 2.4 .[facility] - R2 Advertising Specialist Version 9.2 IMPRESSION: NORMAL MAMMOGRAM. BIRADS 1. BREAST DENSITY: b. There are scattered areas of fibroglandular density. BIRAD: 1 NEGATIVE RECOMMENDATION: ROUTINE SCREENING COMMENT: The patient has been notified of the results by letter per SA requirements. Additional no tification policies are in place for contacting patient with suspicious or incomplete findings. Quality ID #[id number]: The [employer] recommends an annual screening mammogram for women aged 40 years or over. This facility utilizes a reminder system to ensure that all patients receive reminder letters, and/or direct phone calls for appointments. This includes reminders for routine scr eening mammograms, diagnostic mammograms, or other Breast Imaging Interventions when appropriate. Th is patient will be placed in the appropriate reminder system. The [employer] [employer] (ACR) has developed recommendations for screening MRI of the breast s in certain patient populations, to be used in conjunction with mammography. Breast MRI surveillanc e may be appropriate for women with more than 20% lifetime risk of developing breast cancer as deter mined by genetic testing, significant family history of the disease, or history of mantle radiation f or Hodgkins Disease. ACR Practice Guidelines 2008. DBT Technology DBT is a type of tomographic mammography. With conventional mammography, overlapping breast tissue ma y make lesions difficult to detect, even with good compression. DBT uses an x-ray tube that rotates a round the breast, taking images at different angles. These images are then combined to create thin sl ices of the breast that the radiologist can view as a 3D reconstruction. The VISEO unit can perform full-field digital mammograms (2D imaging); or DBT (3D imaging); or both, in a combination mode that quickly performs both the mammogram and the tomosynthesis scan while the breast is still compressed. PQRS 6045F: Fluoroscopic imaging is not utilized for breast tomosynthesis. TECHNICAL DOCUMENTATION: FINDING NUMBER: (1) ASSESSMENT: (1) JOB ID: [id number] [email or web address]- All Rights Reserved Reading location - IP/workstation name: [facility]
== END ==
LOC: WI 10:07
PROVIDERS: ATTEND Nurse Practitioner
DX: Z12.31 Encounter for screening mammogram for malignant neoplasm of breast (principal)
CPT/HCPCS: 77063; 77067

== ENCOUNTER 2018-03-23 03:53 | Emergency (ER) | payer MEDICARE ==
[2018-03-23] MEDS ORDERED: FAMOTIDINE 20 MG TABLET PO ONE (04:33)
[2018-03-23] MEDS ORDERED: SUCRALFATE 1 GM TABLET PO ONE (04:33)
[2018-03-23] MEDS ORDERED: ONDANSETRON 4 MG TAB.RAPDIS PO ONE (04:33)
--- NOTE | 2018-03-23 04:38 | ER Document Report ---
ED GI/ - General Chief Complaint: Blood Pressure Problem Stated Complaint: BLOOD PRESSURE PROBLEM Time Seen by Provider: 03/23/18 04:24 Notes: Patient is a 72-year-old female comes emergency department for chief complaint of nausea, vomiting, and pain in her upper stomach. She states she checked her blood pressure and was high and she got worried. She denies chest pain, dizziness, flank pain, fever or chills. She denies hematemesis, her last bowel movement was within the past 24 hours and was normal. She was recently placed on prednisone for her foot which was swollen, she states her foot is a lot better. She does not take a blood thinner. She has had a cholecystectomy, other past medical history includes hypertension, hyperlipidemia, and GERD. TRAVEL OUTSIDE OF THE [place] IN LAST 30 DAYS: No - Related Data Allergies/Adverse Reactions: shellfish derived Allergy (Verified 03/23/18 05:04) Past Medical History - General Information source: Patient - Social History Smoking Status: Never Smoker Frequency of alcohol use: None Drug Abuse: None Lives with: Family Family History: Reviewed & Not Pertinent - Past Medical History Cardiac Medical History: Reports: Hx Hypercholesterolemia, Hx Hypertension Neurological Medical History: Denies: Hx Seizures Renal/ Medical History: Denies: Hx Peritoneal Dialysis GI Medical History: Reports: Hx Gastroesophageal Reflux Disease - History of peptic ulcer disease at age 19, Hx Ulcer - as teenager Musculoskeletal Medical History: Reports Hx Arthritis Past Surgical History: Reports: Hx Cholecystectomy, Hx Tubal Ligation, Other - Neck biopsy. Denies: Hx Hysterectomy Review of Systems - Review of Systems Constitutional: No symptoms reported EENT: No symptoms reported Cardiovascular: No symptoms reported Respiratory: No symptoms reported Gastrointestinal: See HPI Genitourinary: No symptoms reported Female Genitourinary: No symptoms reported Musculoskeletal: No symptoms reported Skin: No symptoms reported Hematologic/Lymphatic: No symptoms reported Neurological/Psychological: No symptoms reported Physical Exam - Vital signs Vitals: Temp Pulse Resp BP Pulse Ox 97.4 F 78 16 139/79 H 95 03/23/18 03:59 03/23/18 03:59 03/23/18 03:59 03/23/18 03:59 03/23/18 03:59 - Notes Notes: GENERAL: Alert, interacts well. No acute distress. HEAD: Normocephalic, atraumatic. EYES: Pupils equal, round, and reactive to light. Extraocular movements intact. ENT: Oral mucosa moist, tongue midline. NECK: Full range of motion. Supple. Trachea midline. LUNGS: Clear to auscultation bilaterally, no wheezes, rales, or rhonchi. No respiratory distress. HEART: Regular rate and rhythm. No murmur ABDOMEN: Mild epigastric tenderness. Otherwise unremarkable. No guarding. Non -distended. Bowel sounds present in all 4 quadrants. EXTREMITIES: Moves all 4 extremities spontaneously. No edema, normal radial and dorsalis pedis pulses bilaterally. No cyanosis. BACK: no cervical, thoracic, lumbar midline tenderness. No saddle anesthesia, normal distal neurovascular exam. NEUROLOGICAL: Alert and oriented x3. Normal speech. [cranial nerves II through XII grossly intact]. PSYCH: Normal affect, normal mood. SKIN: Warm, dry, normal turgor. No rashes or lesions noted. Course - Re-evaluation Re-evalutation: Patient is quite well-appearing on exam. She has mild epigastric tenderness but otherwise her abdominal exam is completely unremarkable. Vital signs unremarkable. She has had a cholecystectomy. CBC, chemistry, lipase, and urinalysis are all unremarkable. After Carafate, Pepcid, Zofran patient's symptoms completely resolved, she is tolerating p.o. without any difficulty. She states she feels great. Low suspicion of acute abdominal or thoracic pathology. Discussed medications, stopping prednisone which probably contributed to gastritis, follow-up, and return precautions in detail. Patient states understanding and agreement. - Vital Signs Vital signs: Temp Pulse Resp BP Pulse Ox 97.4 F 78 16 139/79 H 95 03/23/18 03:59 03/23/18 03:59 03/23/18 03:59 03/23/18 03:59 03/23/18 03:59 - Laboratory Result Diagrams: 03/23/18 04:35 03/23/18 04:35 Laboratory results interpreted by me: 03/23/18 03/23/18 04:35 04:50 BUN 23 H Glucose 114 H Ur Leukocyte Esterase TRACE H Urine Ascorbic Acid 20 H Discharge - Discharge Clinical Impression: Upper abdominal pain Vomiting Qualifiers: Vomiting type: unspecified Vomiting Intractability: non-intractable Nausea presence: with nausea Qualified Code(s): R11.2 - Nausea with vomiting, unspecified Condition: Stable Additional Instructions: Your laboratory workup is normal. Your symptoms and examination are most suggestive of gastritis, this is likely related to the prednisone you were taking. Stop the prednisone. Take the prescribed medications, start with bland food, slowly progress. Follow-up with primary care for additional management. Return if you worsen including vomiting, vomiting blood, black stools, severe abdominal pain, or any other concerning symptoms. Prescriptions: Famotidine [Pepcid 20 mg Tablet] 20 mg PO BID #20 tablet Ondansetron [Zofran Odt 4 mg Tablet] 1 - 2 tab PO Q4H PRN #15 tab.rapdis PRN Reason: For Nausea/Vomiting Sucralfate [Carafate 1 gm Tablet] 1 gm PO QID #20 tablet Referrals: JAN COHEN NP [Primary Care Provider] - Follow up as needed
[2018-03-23 04:50] LABS: ABSOLUTE LYMPHOCYTES (AUTO) 1.6 10^3/uL (0.5-4.7); ABSOLUTE MONOCYTES (AUTO) 0.6 10^3/uL (0.1-1.4); ABSOLUTE NEUT (AUTO) 6.9 10^3/uL (1.7-8.2); BASOPHILS % (AUTO) 0.4 % (0-2); EOSINOPHILS % (AUTO) 0.4 % (0-6); HEMATOCRIT 37.6 % (36.0-47.0); HEMOGLOBIN 12.9 g/dL (12.0-15.5); MEAN CORPUSCULAR HEMOGLOBIN 30.1 pg (27.0-33.4); MEAN CORPUSCULAR HGB CONC 34.4 g/dL (32.0-36.0); MEAN CORPUSCULAR VOLUME 88 fl (80-97); MONOCYTES % (AUTO) 6.4 % (3-13); PLATELET COUNT 317 10^3/uL (150-450); RED CELL DISTRIBUTION WIDTH 13.4 % (11.5-14.0); SEGMENTED NEUTROPHILS % (AUTO) 75.8 % (42-78); TOTAL CELLS COUNTED % (AUTO) 100 %; WHITE BLOOD COUNT 9.1 10^3/uL (4.0-10.5)
[2018-03-23 05:11] LABS: APPEARANCE,URINE CLEAR; BILIRUBIN,URINE NEGATIVE (NEGATIVE); COLOR,URINE YELLOW; GLUCOSE, URINE NEGATIVE (NEGATIVE); KETONES,URINE NEGATIVE (NEGATIVE); LEUKOCYTE ESTERASE,URINE TRACE (NEGATIVE); NITRITE,URINE NEGATIVE (NEGATIVE); PROTEIN,URINE NEGATIVE (NEGATIVE); URINE SPECIFIC GRAVITY 1.015; UROBILINOGEN,URINE NEGATIVE mg/dL (<2.0)
[2018-03-23 05:11] LABS: ALANINE AMINOTRANSFERASE 28 U/L (9-52); ALBUMIN 4.5 g/dL (3.5-5.0); ALKALINE PHOSPHATASE 100 U/L (38-126); ANION GAP 15 (5-19); ASPARTATE AMINO TRANSFERASE 32 U/L (14-36); BILIRUBIN,DIRECT 0.3 mg/dL (0.0-0.4); BILIRUBIN,TOTAL 0.4 mg/dL (0.2-1.3); BLOOD UREA NITROGEN 23 mg/dL (7-20); CALCIUM 10.1 mg/dL (8.4-10.2); CARBON DIOXIDE 22 mmol/L (22-30); CHLORIDE 106 mmol/L (98-107); GLUCOSE 114 mg/dL (75-110); LIPASE 40.9 U/L (23-300); POTASSIUM 4.1 mmol/L (3.6-5.0); SODIUM 143.4 mmol/L (137-145); TOTAL PROTEIN 7.8 g/dL (6.3-8.2)
[2018-03-23 06:40] VITALS: BP 130/66
== END 2018-03-23 06:25 | disposition home or self-care (01) ==
LOC: ER 03:53
DX: R10.10 Upper abdominal pain, unspecified (principal); R11.2 Nausea with vomiting, unspecified; I10 Essential (primary) hypertension; E78.00 Pure hypercholesterolemia, unspecified; Z90.49 Acquired absence of other specified parts of digestive tract; Z98.51 Tubal ligation status
CPT/HCPCS: 99283; 36415; 83690; 85025; 80053; 81001; A9270 ×3; S0119

== ENCOUNTER 2018-03-25 02:11 | Emergency (ER) | payer MEDICARE ==
[2018-03-25] MEDS ORDERED: ASPIRIN 81 MG TABLET, CHEWABLE PO ONE (03:44)
[2018-03-25 04:23] LABS: BASOPHILS % (AUTO) 1.4 % (0-2); EOSINOPHILS % (AUTO) 2.8 % (0-6); HEMATOCRIT 36.7 % (36.0-47.0); HEMOGLOBIN 12.8 g/dL (12.0-15.5); LYMPHOCYTES % (AUTO) 20.9 % (13-45); MEAN CORPUSCULAR HEMOGLOBIN 30.4 pg (27.0-33.4); MEAN CORPUSCULAR HGB CONC 34.9 g/dL (32.0-36.0); MEAN CORPUSCULAR VOLUME 87 fl (80-97); MONOCYTES % (AUTO) 7.4 % (3-13); PLATELET COUNT 281 10^3/uL (150-450); RED BLOOD COUNT 4.22 10^6/uL (3.72-5.28); RED CELL DISTRIBUTION WIDTH 13.3 % (11.5-14.0); SEGMENTED NEUTROPHILS % (AUTO) 67.5 % (42-78); WHITE BLOOD COUNT 6.9 10^3/uL (4.0-10.5)
[2018-03-25 04:24] LABS: ABSOLUTE BASOPHILS # (AUTO) 0.1 10^3/uL (0.0-0.2); ABSOLUTE EOSINOPHILS # (AUTO) 0.2 10^3/uL (0.0-0.6); ABSOLUTE LYMPHOCYTES (AUTO) 1.5 10^3/uL (0.5-4.7); ABSOLUTE MONOCYTES (AUTO) 0.5 10^3/uL (0.1-1.4); ABSOLUTE NEUT (AUTO) 4.7 10^3/uL (1.7-8.2); TOTAL CELLS COUNTED % (AUTO) 100 %
[2018-03-25 04:41] LABS: ALANINE AMINOTRANSFERASE 48 U/L (9-52); ALBUMIN 4.4 g/dL (3.5-5.0); ALKALINE PHOSPHATASE 107 U/L (38-126); ANION GAP 13 (5-19); ASPARTATE AMINO TRANSFERASE 53 U/L (14-36); BILIRUBIN,DIRECT 0.3 mg/dL (0.0-0.4); BILIRUBIN,TOTAL 0.8 mg/dL (0.2-1.3); BLOOD UREA NITROGEN 27 mg/dL (7-20); CARBON DIOXIDE 24 mmol/L (22-30); CHLORIDE 104 mmol/L (98-107); CREATINE KINASE 66 U/L (30-135); GLUCOSE 100 mg/dL (75-110); POTASSIUM 3.9 mmol/L (3.6-5.0); SODIUM 141.4 mmol/L (137-145); TOTAL PROTEIN 7.6 g/dL (6.3-8.2)
--- NOTE | 2018-03-25 04:52 | RADIOLOGY REPORT (SQ) ---
Chest single view on 03/25/2018 at 4:21 AM CLINICAL INDICATION: Weakness COMPARISON: None FINDINGS: There is minimal biapical scarring. The lungs are otherwise clear. Cardiac, hilar and mediastinal contours are within normal limits. Pulmonary vascularity is within normal limits. IMPRESSION: No acute disease.
[2018-03-25 04:59] LABS: TROPONIN I < 0.012 ng/mL
[2018-03-25] MEDS ORDERED: METOCLOPRAMIDE HCL INJ/PF 10 MG/2 ML SDV IV ONE (06:17)
[2018-03-25] MEDS ORDERED: NORMAL SALINE 1000 ML 1,000 ML IV ONE (06:19)
[2018-03-25 07:44] LABS: APPEARANCE,URINE SLIGHTLY-CLOUDY; BILIRUBIN,URINE NEGATIVE (NEGATIVE); COLOR,URINE YELLOW; GLUCOSE, URINE NEGATIVE (NEGATIVE); KETONES,URINE 20 mg/dL (NEGATIVE); LEUKOCYTE ESTERASE,URINE NEGATIVE (NEGATIVE); NITRITE,URINE NEGATIVE (NEGATIVE); PROTEIN,URINE NEGATIVE (NEGATIVE)
--- NOTE | 2018-03-25 08:39 | RADIOLOGY REPORT (SQ) ---
EXAM DESCRIPTION: CT ABD/PELVIS NO ORAL OR IV COMPLETED DATE/TIME: 03/25/2018 7:59 am REASON FOR STUDY: nv diffuse abd pain COMPARISON: None. TECHNIQUE: CT scan of the abdomen and pelvis performed without intravenous or oral contrast. Images reviewed with lung, soft tissue, and bone windows. Reconstructed coronal and sagittal MPR images revi ewed. All images stored on PACS. All CT scanners at this facility use dose modulation, iterative reconstruction, and/or weight based d osing when appropriate to reduce radiation dose to as low as reasonably achievable (ALARA). [facility]: Dose Right [facility]: CareDose [facility]: Dose Right [facility]: Teradose 4D [facility]: Smart CardioDx RADIATION DOSE: CT Rad equipment meets quality standard of care and radiation dose reduction techniq ues were employed. CTDIvol: 8.5 mGy. DLP: 457 mGy-cm.mGy. LIMITATIONS: None. FINDINGS: LOWER CHEST: Minimal right basilar atelectasis. NON-CONTRASTED LIVER, SPLEEN, ADRENALS: Evaluation limited by lack of IV contrast. No identified sign ificant masses. PANCREAS: No masses. No peripancreatic inflammatory changes. GALLBLADDER: Surgically absent RIGHT KIDNEY AND URETER: No suspicious masses. Assessment limited by lack of IV contrast. No signif icant calcifications. No hydronephrosis or hydroureter. LEFT KIDNEY AND URETER: No suspicious masses. Assessment limited by lack of IV contrast. No signifi cant calcifications. No hydronephrosis or hydroureter. AORTA AND RETROPERITONEUM: No aneurysm. No retroperitoneal masses or adenopathy. BOWEL AND PERITONEAL CAVITY: No CT evidence of free intraperitoneal air or fluid. No bowel obstructi on. Colonic diverticuli without CT signs of acute diverticulitis APPENDIX: Surgically absent PELVIS, BLADDER, AND ABDOMINAL WALL:No abnormal masses. No free fluid. Bladder normal. Normal size f emale pelvic organs. BONES: No significant findings. OTHER: No other significant finding. IMPRESSION: Post cholecystectomy, appendectomy. Colonic diverticuli without CT signs of acute diverticulitis. COMMENT: Quality ID # [id number]: Final reports with documentation of one or more dose reduction techniques (e.g., Automated exposure control, adjustment of the mA and/or kV according to patient size, use of iterative reconstruction technique) TECHNICAL DOCUMENTATION: JOB ID: [id number]- All Rights Reserved Reading location - IP/workstation name: [email or web address]
--- NOTE | 2018-03-25 10:52 | ER Document Report ---
ED General - General Chief Complaint: Weakness Stated Complaint: WEAKNESS Time Seen by Provider: 03/25/18 06:04 TRAVEL OUTSIDE OF THE [place] IN LAST 30 DAYS: No - HPI Patient complains to provider of: Nausea vomiting weakness Notes: Patient was seen today for nausea vomiting weakness coming in because symptoms continue. Patient states still having nausea vomiting. Patient still is also feeling weak. Patient coming in for reevaluation. Patient denies any fevers chills or diarrhea. Patient states diffuse abdominal pain is now developed. Patient upon my evaluation is alert and oriented no signs of any obvious distress. Patient denies any sick contacts. - Related Data Allergies/Adverse Reactions: shellfish derived Allergy (Verified 03/23/18 05:04) Past Medical History - Social History Smoking Status: Never Smoker Family History: Reviewed & Not Pertinent Patient has suicidal ideation: No Patient has homicidal ideation: No - Past Medical History Cardiac Medical History: Reports: Hx Hypercholesterolemia, Hx Hypertension Neurological Medical History: Denies: Hx Seizures Renal/ Medical History: Denies: Hx Peritoneal Dialysis GI Medical History: Reports: Hx Gastroesophageal Reflux Disease - History of peptic ulcer disease at age 19, Hx Ulcer - as teenager Musculoskeletal Medical History: Reports Hx Arthritis Past Surgical History: Reports: Hx Cholecystectomy, Hx Tubal Ligation, Other - Neck biopsy. Denies: Hx Hysterectomy Review of Systems - Review of Systems Constitutional: Weakness - Nausea vomiting EENT: No symptoms reported Cardiovascular: No symptoms reported Respiratory: No symptoms reported Gastrointestinal: No symptoms reported Genitourinary: No symptoms reported Female Genitourinary: No symptoms reported Musculoskeletal: No symptoms reported Skin: No symptoms reported Hematologic/Lymphatic: No symptoms reported Neurological/Psychological: No symptoms reported -: Yes All other systems reviewed and negative Physical Exam - Vital signs Vitals: Temp Pulse Resp BP Pulse Ox 97.5 F 79 16 121/63 99 03/25/18 02:27 03/25/18 02:27 03/25/18 02:27 03/25/18 02:27 03/25/18 02:27 Interpretation: Normal - General General appearance: Appears well, Alert - HEENT Head: Normocephalic, Atraumatic Eyes: Normal Pupils: PERRL - Respiratory Respiratory status: No respiratory distress Chest status: Nontender Breath sounds: Normal Chest palpation: Normal - Cardiovascular Rhythm: Regular Heart sounds: Normal auscultation Murmur: No - Abdominal Inspection: Normal Distension: No distension Bowel sounds: Normal Tenderness: Nontender Organomegaly: No organomegaly - Back Back: Normal, Nontender - Extremities General upper extremity: Normal inspection, Nontender, Normal color, Normal ROM , Normal temperature General lower extremity: Normal inspection, Nontender, Normal color, Normal ROM , Normal temperature, Normal weight bearing. No: Orin's sign - Neurological Neuro grossly intact: Yes Cognition: Normal Orientation: AAOx4 [place]wood Coma Scale Eye Opening: Spontaneous Kila Coma Scale Verbal: Oriented Kila Coma Scale Motor: Obeys Commands Linwood Coma Scale Total: 15 Speech: Normal Motor strength normal: LUE, RUE, LLE, RLE Sensory: Normal - Psychological Associated symptoms: Normal affect, Normal mood - Skin Skin Temperature: Warm Skin Moisture: Dry Skin Color: Normal Course - Re-evaluation Re-evalutation: 03/25/18 14:41 Laboratory workup does not show any acute findings as the day prior. Patient's CAT scan also does not show any acute infectious etiology or any other concerning issues causing patient symptoms more likely viral gastroenteritis. Patient feeling better after IV fluids. Patient will be discharged home anti- medics told follow-up primary care physician. The patient presents with abdominal pain without signs of peritonitis or other life-threatening or serious etiology. The patient appears stable for discharge and has been instructed to return immediately if the symptoms worsen in any way, or in 8- 12hr if not improved for re-evaluation. The patient has been instructed to return if the symptoms worsen or change in any way. - Vital Signs Vital signs: Temp Pulse Resp BP Pulse Ox 97.8 F 57 L 19 123/54 L 95 03/25/18 12:17 03/25/18 03:30 03/25/18 12:01 03/25/18 12:01 03/25/18 12:01 - Laboratory Result Diagrams: 03/25/18 04:10 03/25/18 04:10 Laboratory results interpreted by me: 03/25/18 03/25/18 04:10 06:52 BUN 27 H AST 53 H Urine Ketones 20 H Urine Urobilinogen 4.0 H Discharge - Discharge Clinical Impression: Weakness Vomiting Qualifiers: Vomiting type: unspecified Vomiting Intractability: unspecified Nausea presence : unspecified Qualified Code(s): R11.10 - Vomiting, unspecified Condition: Good Disposition: HOME, SELF-CARE Instructions: Gastroenteritis (adult) ([facility]), Vomiting ([facility]) Additional Instructions: Follow-up with your primary care physician. At this time your CAT scan and laboratory values not show any critical pathology that will require surgery or antibiotics or admission to the hospital at this time. We recommend drinking plenty of fluids to stay hydrated please take to a very bland diet such as toast cereal avoiding foods that is fried. Take medication as prescribed return to ER symptoms worsen Prescriptions: Metoclopramide HCl [Reglan] 5 mg PO Q6 #30 tablet Ondansetron [Zofran Odt] 4 mg PO Q6 PRN #30 tab.rapdis PRN Reason: For Nausea/Vomiting Referrals: JAN COHEN NP [Primary Care Provider] - Follow up as needed
[2018-03-25 12:17] VITALS: BP 123/54
--- NOTE | 2018-03-25 22:15 | EKG REPORT ---
SEVERITY:- NORMAL ECG - SINUS RHYTHM : Confirmed by: Juliocesar Delacruz 25-Mar-2018 22:15:15
== END 2018-03-25 12:17 | disposition home or self-care (01) ==
LOC: ER 02:11
DX: R53.1 Weakness (principal); R11.2 Nausea with vomiting, unspecified; R10.84 Generalized abdominal pain; I10 Essential (primary) hypertension; Z87.19 Personal history of other diseases of the digestive system; Z87.11 Personal history of peptic ulcer disease; Z91.013 Allergy to seafood; Z90.49 Acquired absence of other specified parts of digestive tract; Z90.710 Acquired absence of both cervix and uterus
CPT/HCPCS: 93005; 99285; 96361; 51701; 96374; 36415; 82553; 82550; 84443; 85025; 80053; 81001; 84484; 71045; 74176; 93010; A9270; J2765; J7030

== ENCOUNTER 2018-04-13 18:25 | Emergency (ER) | payer MEDICARE ==
[2018-04-13 18:43] VITALS: BP 157/70
--- NOTE | 2018-04-13 19:10 | ER Document Report ---
ED Medical Screen (RME) - General Chief Complaint: Foot Pain Stated Complaint: FOOT PAIN Time Seen by Provider: 04/13/18 19:07 Notes: 72 years old female presents today with one-month history of left leg swelling pain, cellulitis, treated with different antibiotic for the entire 1 month. Initially Bactrim subsequently Keflex. Without improvement. Feeling general malaise fatigue weakness and nausea. No fever chills. TRAVEL OUTSIDE OF THE [place] IN LAST 30 DAYS: No - Related Data Allergies/Adverse Reactions: shellfish derived Allergy (Verified 04/13/18 18:26) Sulfa (Sulfonamide Antibiotics) Allergy (Verified 04/13/18 18:27) Past Medical History - Past Medical History Cardiac Medical History: Reports: Hx Hypercholesterolemia, Hx Hypertension Neurological Medical History: Denies: Hx Seizures Renal/ Medical History: Denies: Hx Peritoneal Dialysis GI Medical History: Reports: Hx Gastroesophageal Reflux Disease - History of peptic ulcer disease at age 19, Hx Ulcer - as teenager Musculoskeltal Medical History: Reports Hx Arthritis Past Surgical History: Reports: Hx Cholecystectomy, Hx Tubal Ligation, Other - Neck biopsy. Denies: Hx Hysterectomy Physical Exam - Vital signs Vitals: Temp Pulse Resp BP Pulse Ox 98.1 F 75 16 157/70 H 96 04/13/18 18:40 04/13/18 18:40 04/13/18 18:40 04/13/18 18:40 04/13/18 18:40 Course - Vital Signs Vital signs: Temp Pulse Resp BP Pulse Ox 98.1 F 75 16 157/70 H 96 04/13/18 18:40 04/13/18 18:40 04/13/18 18:40 04/13/18 18:40 04/13/18 18:40 Doctor's Discharge - Discharge Referrals: JAN COHEN NP [Primary Care Provider] - Follow up as needed
[2018-04-13 20:00] LABS: ABSOLUTE BASOPHILS # (AUTO) 0.1 10^3/uL (0.0-0.2); ABSOLUTE EOSINOPHILS # (AUTO) 0.2 10^3/uL (0.0-0.6); ABSOLUTE LYMPHOCYTES (AUTO) 2.4 10^3/uL (0.5-4.7); ABSOLUTE MONOCYTES (AUTO) 0.5 10^3/uL (0.1-1.4); ABSOLUTE NEUT (AUTO) 3.9 10^3/uL (1.7-8.2); BASOPHILS % (AUTO) 1.2 % (0-2); EOSINOPHILS % (AUTO) 2.3 % (0-6); HEMATOCRIT 39.9 % (36.0-47.0); HEMOGLOBIN 13.5 g/dL (12.0-15.5); LYMPHOCYTES % (AUTO) 34.1 % (13-45); MEAN CORPUSCULAR HEMOGLOBIN 29.8 pg (27.0-33.4); MEAN CORPUSCULAR HGB CONC 33.8 g/dL (32.0-36.0); MEAN CORPUSCULAR VOLUME 88 fl (80-97); MONOCYTES % (AUTO) 7.6 % (3-13); PLATELET COUNT 295 10^3/uL (150-450); RED BLOOD COUNT 4.52 10^6/uL (3.72-5.28); SEGMENTED NEUTROPHILS % (AUTO) 54.8 % (42-78); TOTAL CELLS COUNTED % (AUTO) 100 %
[2018-04-13 20:14] LABS: APPEARANCE,URINE CLEAR; BILIRUBIN,URINE NEGATIVE (NEGATIVE); COLOR,URINE YELLOW; GLUCOSE, URINE NEGATIVE (NEGATIVE); KETONES,URINE TRACE mg/dL (NEGATIVE); LEUKOCYTE ESTERASE,URINE TRACE (NEGATIVE); NITRITE,URINE NEGATIVE (NEGATIVE); PROTEIN,URINE NEGATIVE (NEGATIVE); URINE SPECIFIC GRAVITY 1.016; UROBILINOGEN,URINE NEGATIVE mg/dL (<2.0)
[2018-04-13 20:25] LABS: ALANINE AMINOTRANSFERASE 45 U/L (9-52); ALBUMIN 4.8 g/dL (3.5-5.0); ALKALINE PHOSPHATASE 112 U/L (38-126); ANION GAP 13 (5-19); ASPARTATE AMINO TRANSFERASE 44 U/L (14-36); BILIRUBIN,DIRECT 0.3 mg/dL (0.0-0.4); BILIRUBIN,TOTAL 0.8 mg/dL (0.2-1.3); BLOOD UREA NITROGEN 17 mg/dL (7-20); CALCIUM 10.2 mg/dL (8.4-10.2); CARBON DIOXIDE 29 mmol/L (22-30); CHLORIDE 102 mmol/L (98-107); GLUCOSE 102 mg/dL (75-110); POTASSIUM 3.4 mmol/L (3.6-5.0); SODIUM 143.9 mmol/L (137-145); TOTAL PROTEIN 8.1 g/dL (6.3-8.2)
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
[2018-04-13] MEDS ORDERED: ONDANSETRON 4 MG TAB.RAPDIS PO ONE (20:29)
--- NOTE | 2018-04-13 20:44 | RADIOLOGY REPORT (SQ) ---
EXAM DESCRIPTION: CT LT LOWER EXTREMITY WITHOUT COMPLETED DATE/TIME: 04/13/2018 8:20 pm REASON FOR STUDY: Negative x-ray/persistent pain and swelling/rule out infection COMPARISON: None. TECHNIQUE: CT scan of the left foot performed without intravenous or oral contrast. Images reviewed with soft tissue and bone windows. Reconstructed coronal and sagittal MPR images reviewed. All stephany ges stored on PACS. All CT scanners at this facility use dose modulation, iterative reconstruction, and/or weight based d osing when appropriate to reduce radiation dose to as low as reasonably achievable (ALARA). [facility]: Dose Right [facility]: CareDose [facility]: Dose Right [facility]: Teradose 4D [facility]: Kiwi RADIATION DOSE: CT Rad equipment meets quality standard of care and radiation dose reduction techniq ues were employed. CTDIvol: 4.1 mGy. DLP: 94 mGy-cm. mGy. LIMITATIONS: None. FINDINGS: Axial and reformatted coronal and sagittal images of the left foot show no osseous abnorma lity. There is no evidence of osteomyelitis. There is mild subcutaneous edema. No focal inflammato ry changes are appreciated. No abscess is seen. IMPRESSION: Mild subcutaneous edema. No osteomyelitis. No abscess. TECHNICAL DOCUMENTATION: JOB ID: [id number] Quality ID # [id number]: Final reports with documentation of one or more dose reduction techniques (e.g., Au tomated exposure control, adjustment of the mA and/or kV according to patient size, use of iterative reconstruction technique) 2010 [employer]- All Rights Reserved Reading location - IP/workstation name: [email or web address]
[2018-04-13] MEDS ORDERED: ONDANSETRON ODT 4 MG TAB (6 TAB/ER DISP) PO PRN (21:08)
[2018-04-13] MEDS ORDERED: POTASSIUM CHLORIDE 10 MEQ CAPSULE.ER PO ONE (21:08)
== END 2018-04-13 21:26 | disposition home or self-care (01) ==
LOC: ER 18:25
DX: M79.89 Other specified soft tissue disorders (principal); R11.0 Nausea; R53.1 Weakness; I10 Essential (primary) hypertension; Z88.2 Allergy status to sulfonamides; Z91.013 Allergy to seafood
CPT/HCPCS: 99284; 36415; 85025; 80053; 81001; 83605; 73700; A9270 ×3; S0119

== ENCOUNTER 2018-04-25 19:31 | Emergency (ER) | payer MEDICARE ==
--- NOTE | 2018-04-25 20:47 | ER Document Report ---
ED Medical Screen (RME) - General Chief Complaint: Weakness Stated Complaint: WEAKNESS Time Seen by Provider: 04/25/18 20:41 Mode of Arrival: Wheelchair Information source: Patient Notes: This is a 72-year-old female with a history of hypertension, dyslipidemia, episodes of hypokalemia and generalized weakness that presents after acute onset of generalized weakness. She does state that she saw her primary care physician on Wednesday and the primary care physician thought that the left lower extremity was weaker than the right at that time. The patient states that she feels like her left upper extremity is a little weaker now. She has no facial asymmetry and no slurred speech at this time. 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 She has no significant pronator drift in triage. I think in general, her weakness is probably more generalized, we will send her for CAT scan and arranging a room for her. TRAVEL OUTSIDE OF THE [place] IN LAST 30 DAYS: No - Related Data Allergies/Adverse Reactions: shellfish derived Allergy (Verified 04/13/18 18:26) Sulfa (Sulfonamide Antibiotics) Allergy (Verified 04/13/18 18:27) Past Medical History - Social History Chew tobacco use (# tins/day): No Drug Abuse: None - Past Medical History Cardiac Medical History: Reports: Hx Hypercholesterolemia, Hx Hypertension Neurological Medical History: Denies: Hx Seizures Renal/ Medical History: Denies: Hx Peritoneal Dialysis GI Medical History: Reports: Hx Gastroesophageal Reflux Disease - History of peptic ulcer disease at age 19, Hx Ulcer - as teenager Musculoskeltal Medical History: Reports Hx Arthritis Past Surgical History: Reports: Hx Cholecystectomy, Hx Tubal Ligation, Other - Neck biopsy. Denies: Hx Hysterectomy Physical Exam - Vital signs Vitals: Temp Pulse Resp BP Pulse Ox 97.8 F 74 20 144/70 H 100 04/25/18 19:39 04/25/18 19:39 04/25/18 19:39 04/25/18 19:39 04/25/18 19:39 Course - Vital Signs Vital signs: Temp Pulse Resp BP Pulse Ox 97.8 F 74 20 144/70 H 100 04/25/18 19:39 04/25/18 19:39 04/25/18 19:39 04/25/18 19:39 04/25/18 19:39 Doctor's Discharge - Discharge Referrals: JAN COHEN NP [Primary Care Provider] - Follow up as needed
--- NOTE | 2018-04-25 21:16 | RADIOLOGY REPORT (SQ) ---
EXAM DESCRIPTION: CT HEAD WITHOUT COMPLETED DATE/TIME: 04/25/2018 8:54 pm REASON FOR STUDY: weakness COMPARISON: None. TECHNIQUE: Axial images acquired through the brain without intravenous contrast. Images reviewed wi th bone, brain and subdural windows. Additional sagittal and coronal reconstructions were generated. Images stored on PACS. All CT scanners at this facility use dose modulation, iterative reconstruction, and/or weight based d osing when appropriate to reduce radiation dose to as low as reasonably achievable (ALARA). [facility]: Dose Right [facility]: CareDose [facility]: Dose Right [facility]: Teradose 4D [facility]: LimeTray RADIATION DOSE: CT Rad equipment meets quality standard of care and radiation dose reduction techniq ues were employed. CTDIvol: 53.2 mGy. DLP: 991 mGy-cm. mGy. LIMITATIONS: None. FINDINGS: VENTRICLES: Normal size and contour. CEREBRUM: No masses. No hemorrhage. No midline shift. No evidence for acute infarction. Normal gra y/white matter differentiation. No areas of low density in the white matter. CEREBELLUM: No masses. No hemorrhage. No alteration of density. No evidence for acute infarction. EXTRAAXIAL SPACES: No fluid collections. No masses. ORBITS AND GLOBE: No intra- or extraconal masses. Normal contour of globe without masses. CALVARIUM: No fracture. PARANASAL SINUSES: Chronic left maxillary sinus disease. SOFT TISSUES: No mass or hematoma. OTHER: No other significant finding. IMPRESSION: NORMAL BRAIN CT WITHOUT CONTRAST. EVIDENCE OF ACUTE STROKE: NO. COMMENT: Quality ID # 436: Final reports with documentation of one or more dose reduction techniques (e.g., Automated exposure control, adjustment of the mA and/or kV according to patient size, use of iterative reconstruction technique) TECHNICAL DOCUMENTATION: JOB ID: [id number] [employer]- All Rights Reserved Reading location - IP/workstation name: [email or web address]
--- NOTE | 2018-04-25 21:18 | RADIOLOGY REPORT (SQ) ---
EXAM DESCRIPTION: CHEST SINGLE VIEW COMPLETED DATE/TIME: 04/25/2018 8:57 pm REASON FOR STUDY: weakness COMPARISON: 03/25/2018 0420 hours EXAM PARAMETERS: NUMBER OF VIEWS: One view. TECHNIQUE: Single frontal radiographic view of the chest acquired. RADIATION DOSE: NA LIMITATIONS: None. FINDINGS: LUNGS AND PLEURA: No opacities, masses or pneumothorax. No pleural effusion. MEDIASTINUM AND HILAR STRUCTURES: No masses. Contour normal. HEART AND VASCULAR STRUCTURES: Heart normal in size. Normal vasculature. BONES: No acute findings. HARDWARE: None in the chest. OTHER: No other significant finding. IMPRESSION: NO ACUTE RADIOGRAPHIC FINDING IN THE CHEST. TECHNICAL DOCUMENTATION: JOB ID: [id number] [employer]- All Rights Reserved Reading location - IP/workstation name: [email or web address]
[2018-04-25 21:51] LABS: ABSOLUTE BASOPHILS # (AUTO) 0.1 10^3/uL (0.0-0.2); ABSOLUTE EOSINOPHILS # (AUTO) 0.1 10^3/uL (0.0-0.6); ABSOLUTE LYMPHOCYTES (AUTO) 1.8 10^3/uL (0.5-4.7); ABSOLUTE MONOCYTES (AUTO) 0.6 10^3/uL (0.1-1.4); ABSOLUTE NEUT (AUTO) 6.7 10^3/uL (1.7-8.2); BASOPHILS % (AUTO) 0.9 % (0-2); EOSINOPHILS % (AUTO) 1.3 % (0-6); HEMATOCRIT 38.4 % (36.0-47.0); HEMOGLOBIN 13.1 g/dL (12.0-15.5); LYMPHOCYTES % (AUTO) 19.7 % (13-45); MEAN CORPUSCULAR HEMOGLOBIN 29.9 pg (27.0-33.4); MEAN CORPUSCULAR HGB CONC 34.1 g/dL (32.0-36.0); MEAN CORPUSCULAR VOLUME 88 fl (80-97); MONOCYTES % (AUTO) 6.7 % (3-13); PLATELET COUNT 273 10^3/uL (150-450); RED BLOOD COUNT 4.38 10^6/uL (3.72-5.28); RED CELL DISTRIBUTION WIDTH 13.4 % (11.5-14.0); SEGMENTED NEUTROPHILS % (AUTO) 71.4 % (42-78); TOTAL CELLS COUNTED % (AUTO) 100 %; WHITE BLOOD COUNT 9.4 10^3/uL (4.0-10.5)
[2018-04-25 22:03] LABS: ALANINE AMINOTRANSFERASE 38 U/L (9-52); ALBUMIN 4.3 g/dL (3.5-5.0); ALKALINE PHOSPHATASE 111 U/L (38-126); ANION GAP 13 (5-19); ASPARTATE AMINO TRANSFERASE 35 U/L (14-36); BILIRUBIN,DIRECT 0.3 mg/dL (0.0-0.4); BILIRUBIN,TOTAL 0.8 mg/dL (0.2-1.3); BLOOD UREA NITROGEN 17 mg/dL (7-20); CARBON DIOXIDE 27 mmol/L (22-30); CHLORIDE 103 mmol/L (98-107); CREATINE KINASE 47 U/L (30-135); GLUCOSE 107 mg/dL (75-110); POTASSIUM 3.5 mmol/L (3.6-5.0); SODIUM 142.9 mmol/L (137-145); TOTAL PROTEIN 7.5 g/dL (6.3-8.2)
[2018-04-25 22:15] LABS: CREATINE KINASE MB 0.36 ng/mL (<4.55)
[2018-04-25 22:17] LABS: TROPONIN I < 0.012 ng/mL
--- NOTE | 2018-04-25 22:57 | EKG REPORT ---
SEVERITY:- NORMAL ECG - SINUS RHYTHM : Confirmed by: Juliocesar Delacruz 25-Apr-2018 22:56:50
--- NOTE | 2018-04-25 23:40 | ER Document Report ---
ED General - General Chief Complaint: Weakness Stated Complaint: WEAKNESS Time Seen by Provider: 04/25/18 20:41 Mode of Arrival: Wheelchair Notes: Patient is a 72 year old female who presents with an episode of abrupt onset of weakness, lightheadedness, nausea, and paresthesias to her face and left hand. The patient states that she was standing up making dinner when this episode occurred. Her symptoms have now mostly resolved without intervention. She states that she has had similar symptoms multiple times over the past several months and had a similar episode last year which which is attributed to hypokalemia. She currently denies any ongoing symptoms. Her who witnessed the episode states that the patient appeared to be feeling unwell but he did not notice any facial drooping, unilateral weakness, slurring of speech or aphasia. Patient denies any chest pain, shortness of breath, headache, neck pain, abdominal pain, vomiting or diarrhea. No recent medication changes. She has followed up with her primary care doctor regarding these episodes of weakness, had normal laboratories and states that her primary care doctor did not know why she was having her symptoms. TRAVEL OUTSIDE OF THE [place] IN LAST 30 DAYS: No - Related Data Allergies/Adverse Reactions: shellfish derived Allergy (Verified 04/13/18 18:26) Sulfa (Sulfonamide Antibiotics) Allergy (Verified 04/13/18 18:27) Past Medical History - General Information source: Patient - Social History Smoking Status: Never Smoker Chew tobacco use (# tins/day): No Frequency of alcohol use: None Drug Abuse: None Lives with: Spouse/Significant other Family History: Reviewed & Not Pertinent Patient has suicidal ideation: No Patient has homicidal ideation: No - Past Medical History Cardiac Medical History: Reports: Hx Hypercholesterolemia, Hx Hypertension Neurological Medical History: Denies: Hx Seizures Renal/ Medical History: Denies: Hx Peritoneal Dialysis GI Medical History: Reports: Hx Gastroesophageal Reflux Disease - History of peptic ulcer disease at age 19, Hx Ulcer - as teenager Musculoskeletal Medical History: Reports Hx Arthritis Past Surgical History: Reports: Hx Cholecystectomy, Hx Tubal Ligation, Other - Neck biopsy. Denies: Hx Hysterectomy Review of Systems - Review of Systems Notes: Constitutional: Negative for fever. HENT: Negative for sore throat. Eyes: Negative for visual changes. Cardiovascular: Negative for chest pain. Positive for lightheadedness Respiratory: Negative for shortness of breath. Gastrointestinal: Negative for abdominal pain, vomiting or diarrhea. Genitourinary: Negative for dysuria. Musculoskeletal: Negative for back pain. Skin: Negative for rash. Neurological: Negative for headaches, weakness or numbness. 10 point ROS negative except as marked above and in HPI. Physical Exam - Vital signs Vitals: Temp Pulse Resp BP Pulse Ox 97.8 F 74 20 144/70 H 100 04/25/18 19:39 04/25/18 19:39 04/25/18 19:39 04/25/18 19:39 04/25/18 19:39 Interpretation: Hypertensive Notes: PHYSICAL EXAMINATION: GENERAL: Well-appearing, well-nourished and in no acute distress. HEAD: Atraumatic, normocephalic. EYES: Pupils equal round and reactive to light, extraocular movements intact, sclera anicteric, conjunctiva are normal. ENT: nares patent, oropharynx clear without exudates. Moist mucous membranes. NECK: Normal range of motion, supple without lymphadenopathy LUNGS: Breath sounds clear to auscultation bilaterally and equal. No wheezes rales or rhonchi. HEART: Regular rate and rhythm without murmurs ABDOMEN: Soft, nontender, normoactive bowel sounds. No guarding, no rebound. No masses appreciated. EXTREMITIES: Normal range of motion, no pitting or edema. No cyanosis. NEUROLOGICAL: Face symmetric. Tongue protrudes midline. Extraocular motions intact. Pupils are 2 mm and equally reactive. Normal speech, normal gait. 5 out of 5 strength in both the distal and proximal upper and lower extremities bilaterally. Sensation is grossly intact throughout. Finger to nose testing normal. Pronator drift normal. PSYCH: Normal mood, normal affect. SKIN: Warm, Dry, normal turgor, no rashes or lesions noted. Course - Re-evaluation Re-evalutation: 04/25/18 23:39 Patient presents with signs and symptoms most consistent with near syncope. Patient normotensive, alert, without focal neurologic deficits at time of arrival. Denies syncope was during exertion. No preceding symptoms of palpitations, chest pain, or shortness of breath. Patient asymptomatic at time of arrival. EKG is without evidence of HCOM, right heart strain, ST changes to suggest ischemia, prolong QTc, delta wave, epsilon wave, or Brugada syndrome. Patient denies any family history of sudden cardiac , personal history of of structural heart disease. Patient denies any symptoms to suggest an acute PE , NC, TAD, SAH, seizure, or acute GI bleed as the etiology of their syncope today. On exam, no murmurs to suggest critical aortic stenosis as possible etiology. Labs including repeat troponin are unremarkable. Patient has had recurrent similar symptoms and I have advised her that she should get a bus monitor as well as an echocardiogram completed by a greenskeeper and have referred her to cardiology for completion of these studies as it appears that the patient may be having intermittent dysrhythmias most probably atrial fibrillation she reports that she feels like her heart is going very fast during these events versus possible supraventricular tachycardia. I think it is far less likely that she be having a malignant rhythm such as ventricular tachycardia given the absence of loss of consciousness as well as lack of risk factors for such diagnosis. At this time will discharge with return precautions and follow-up recommendations. Verbal discharge instructions given a the bedside and opportunity for questions given. Medication warnings reviewed. Patient is in agreement with this plan and has verbalized understanding of return precautions and the need for primary care follow-up in the next 24-72 hours. - Vital Signs Vital signs: Temp Pulse Resp BP Pulse Ox 97.8 F 69 19 128/64 H 96 04/25/18 19:39 04/26/18 00:00 04/26/18 00:01 04/26/18 00:00 04/26/18 00:01 - Laboratory Result Diagrams: 04/25/18 21:30 04/25/18 21:30 Laboratory results interpreted by me: 04/25/18 21:30 Potassium 3.5 L - Diagnostic Test Radiology reviewed: Image reviewed, Reports reviewed Radiology results interpreted by me: 04/26/18 04:43 CT head: No acute intracranial bleed or mass Chest x-ray: No acute infiltrate or pneumothorax - EKG Interpretation by Me Additional EKG results interpreted by me: 04/26/18 04:43 Sinus rhythm. Rate 68. No ST elevations or depressions. QTC 443. Discharge - Discharge Clinical Impression: Near syncope, Weakness Condition: Good Disposition: HOME, SELF-CARE Additional Instructions: You were seen today after an episode of almost passing out. Your EKG here is normal. At this time, we do not feel that your episode of passing out was from any life-threatening cause. Please drink plenty of fluids over the next several days. Return to emergency department if you have any further episodes of syncope, headache, weakness, numbness, chest pain, or shortness of breath. Please follow-up with greenskeeper regarding a monitor and echocardiogram as I believe your symptoms are likely related to possible rhythm changes. Referrals: JAN COHEN NP [Primary Care Provider] - Follow up as needed JAIME DAVEY MD [ACTIVE STAFF] - Follow up in 3-5 days
[2018-04-26 00:51] VITALS: BP 128/64
== END 2018-04-26 01:30 | disposition home or self-care (01) ==
LOC: ER 19:31
DX: R53.1 Weakness (principal); R55 Syncope and collapse; R20.2 Paresthesia of skin; R11.0 Nausea; I10 Essential (primary) hypertension; Z91.013 Allergy to seafood; Z88.2 Allergy status to sulfonamides
CPT/HCPCS: 36415; 70450; 71045; 80053; 82550; 82553; 84484; 85025; 93005; 93010; 99285

== ENCOUNTER 2018-06-08 07:00 | Emergency (ER) | payer MEDICARE ==
--- NOTE | 2018-06-08 07:31 | ER Document Report ---
ED Cardiac - General Chief Complaint: Chest Pain Stated Complaint: CHEST PAIN, WEAKNESS Time Seen by Provider: 06/08/18 07:10 TRAVEL OUTSIDE OF THE [place] IN LAST 30 DAYS: No - HPI Notes: Patient is a 82-year-old female that presents to the emergency department for chief complaint of chest pain and lower extremity weakness. She states since March 2018 she has had intermittent episodes of chest pain and weakness in her bilateral legs. She states the weakness feels like her legs are going to "give out" on her. The symptoms come and go throughout the day and usually only last a few minutes at a time. She also reports left parasternal chest pain that is burning in nature. The pain radiates into her left neck. She reports associated paresthesias in her left arm, lightheadedness , and shortness of breath. She did have an episode of this chest pain this morning which lasted 20 minutes and has now completely resolved. Currently she states she is feeling back to normal. She states there was no change in her episode today compared to previous episodes over the last few months. She was seen by cardiology, Dr. Davey, who performed a stress test last week which was normal. Patient also states she has had normal carotid duplex. She denies any history of DVT/PE, recent surgery, recent travel or immobilization. She is not on exogenous estrogens. Past Medical History: Upper lipidemia, hypertension Past Surgical History: Cholecystectomy, appendectomy, salivary gland removal, tubal ligation Social History: Denies drugs alcohol and tobacco Family History: Reviewed and noncontributory for presenting illness Allergies: Reviewed, see documented allergy list. REVIEW OF SYSTEMS: CONSTITUTIONAL : No fever No chills No diaphoresis No recent illness EENT: No vision changes No congestion No sore throat CARDIOVASCULAR: chest pain No palpitations Headedness RESPIRATORY: shortness of breath No cough No difficulty breathing GASTROINTESTINAL: No abdominal pain No nausea No vomiting No diarrhea GENITOURINARY: No dysuria No hematuria No difficulty urinating MUSCULOSKELETAL: No back pain No leg pain No arm pain SKIN: No rashes No lesions LYMPHATIC: No swollen, enlarged glands. NEUROLOGICAL: No lightheadedness No headache weakness No paresthesias PSYCHIATRIC: No anxiety No depression PHYSICAL EXAMINATION: Vital signs reviewed, nursing noted reviewed. GENERAL: Well-appearing, well-nourished and in no acute distress. HEAD: Atraumatic, normocephalic. EYES: Eyes appear normal, extraocular movements intact, sclera anicteric, conjunctiva are normal. ENT: nares patent, oropharynx clear without exudates. Moist mucous membranes. NECK: Normal range of motion, supple without lymphadenopathy LUNGS: Breath sounds clear to auscultation bilaterally and equal. No wheezes rales or rhonchi. HEART: Regular rate and rhythm without murmurs. +2/4 bilateral radial pulse ABDOMEN: Soft, nontender, normoactive bowel sounds. No rebound, guarding, or rigidity. No masses appreciated. EXTREMITIES: Nontender, good range of motion, no pitting or edema. NEUROLOGICAL: No focal neurological deficits. Moves all extremities spontaneously Motor and sensory grossly intact on exam. PSYCH: Normal mood, normal affect. SKIN: Warm, Dry, normal turgor, no rashes or lesions noted on exposed skin - Related Data Allergies/Adverse Reactions: shellfish derived Allergy (Verified 06/08/18 07:27) Sulfa (Sulfonamide Antibiotics) Allergy (Verified 06/08/18 07:27) Past Medical History - Social History Smoking Status: Never Smoker Family History: Reviewed & Not Pertinent - Past Medical History Cardiac Medical History: Reports: Hx Hypercholesterolemia, Hx Hypertension Neurological Medical History: Denies: Hx Seizures Renal/ Medical History: Denies: Hx Peritoneal Dialysis GI Medical History: Reports: Hx Gastroesophageal Reflux Disease - History of peptic ulcer disease at age 19, Hx Ulcer - as teenager Musculoskeletal Medical History: Reports Hx Arthritis Past Surgical History: Reports: Hx Cholecystectomy, Hx Tubal Ligation, Other - Neck biopsy. Denies: Hx Hysterectomy Review of Systems - Review of Systems Notes: Dictated Physical Exam - Vital signs Vitals: Temp Pulse Resp BP Pulse Ox 97.7 F 71 14 134/74 H 98 06/08/18 07:05 06/08/18 07:05 06/08/18 07:05 06/08/18 07:05 06/08/18 07:05 - Notes Notes: Dictated Course - Re-evaluation Re-evalutation: 06/08/18 12:18 Vitals reviewed. Nursing notes reviewed. Patient's EKG shows no acute abnormality. Lab work obtained showing a normal troponin. She has no electrolyte derangements. CT scan of the chest abdomen and pelvis was obtained to evaluate for aortic aneurysm or dissection and was negative. There is no pulmonary embolism. I discussed her care with her broker agricultural produce who obtained a stress test last week. He feels if her second troponin is negative she is stable for discharge home. Dr. Davey will see her in the office tomorrow morning for reevaluation. Patient also states she has an appointment at [facility] on Wednesday with a different broker agricultural produce for a second opinion. Patient has remained chest pain-free while in the emergency room. Laboratory 06/08/18 06/08/18 06/08/18 07:55 07:55 07:55 WBC 5.7 RBC 4.33 Hgb 13.0 Hct 37.9 MCV 88 MCH 29.9 MCHC 34.2 RDW 13.3 Plt Count 252 Seg Neutrophils % 61.2 Lymphocytes % 26.6 Monocytes % 6.8 Eosinophils % 4.0 Basophils % 1.4 Absolute Neutrophils 3.5 Absolute Lymphocytes 1.5 Absolute Monocytes 0.4 Absolute Eosinophils 0.2 Absolute Basophils 0.1 Sodium 139.9 Potassium 3.7 Chloride 104 Carbon Dioxide 28 Anion Gap 8 BUN 17 Creatinine 0.68 Est GFR ( Amer) > 60 Est GFR (Non-Af Amer) > 60 Glucose 107 Calcium 10.3 H Troponin I < 0.012 Chest X-Ray 06/08/18 07:11 IMPRESSION: 1. No acute pulmonary process identified. Abdomen/Pelvis CTA 06/08/18 07:26 IMPRESSION: No CT evidence of thoracic or abdominal aortic dissection or aneurysm. Bibasilar atelectasis. Post cholecystectomy and appendectomy. Chest/Abdomen CTA 06/08/18 07:26 IMPRESSION: No CT evidence of thoracic or abdominal aortic dissection or aneurysm. Bibasilar atelectasis. Post cholecystectomy and appendectomy. 06/08/18 14:29 Second troponin is negative. Patient will follow with cardiology tomorrow. She will return for new or worsening symptoms. She was provided a copy of all lab work and imaging done today to take with her to her appointment at [facility] on Wednesday - Vital Signs Vital signs: Temp Pulse Resp BP Pulse Ox 97.8 F 71 14 153/70 H 93 06/08/18 14:10 06/08/18 07:05 06/08/18 14:10 06/08/18 14:10 06/08/18 14:10 - Laboratory Result Diagrams: 06/08/18 07:55 06/08/18 07:55 Laboratory results interpreted by me: 06/08/18 07:55 Calcium 10.3 H - EKG Interpretation by Me Additional EKG results interpreted by me: 06/08/18 07:30 0707: Normal sinus rhythm, rate 69, normal axis, no ectopy, no ST elevation Discharge - Discharge Clinical Impression: Chest pain Qualifiers: Chest pain type: unspecified Qualified Code(s): R07.9 - Chest pain, unspecified Leg weakness Qualifiers: Laterality: bilateral Qualified Code(s): R29.898 - Other symptoms and signs involving the musculoskeletal system Condition: Stable Disposition: HOME, SELF-CARE Instructions: Chest Pain of Unclear Cause ([facility]) Additional Instructions: Please return to the emergency department if you have any worsening, or concern of your symptoms. Please return to the emergency department if you develop chest pain, difficulty breathing, severe abdominal pain, or ongoing vomiting. Please follow-up with your primary care physician in 2-3 days and any other recommended physicians. If prescribed, take all medications as directed. If you have any questions or concerns do not hesitate to return the emergency department for evaluation. See Dr. Frankel in his office tomorrow. Call this afternoon or first thing tomorrow morning to schedule an appointment. Referrals: JAN COHEN NP [Primary Care Provider] - Follow up as needed JAIME DAVEY MD [ACTIVE STAFF] - Follow up tomorrow
--- NOTE | 2018-06-08 07:47 | RADIOLOGY REPORT (SQ) ---
EXAM DESCRIPTION: XR CHEST 1 VIEW COMPLETED DATE/TME: 06/08/2018 07:11 CLINICAL HISTORY: chest pain COMPARISON: 02/06/2018 FINDINGS: Single frontal view of the chest. The cardiomediastinal silhouette has normal size and contour. No consolidation, pneumothorax, or pleural effusion. Leads overlie the chest. No displaced rib fractures identified. Upper abdominal soft tissues are unremarkable. IMPRESSION: 1. No acute pulmonary process identified.
[2018-06-08] MEDS ORDERED: METHYLPREDNISOLONE INJ 125 MG/2 ML SDV IV ONE (08:00)
[2018-06-08] MEDS ORDERED: DIPHENHYDRAMINE HCL 50 MG CAPSULE PO ONE (08:00)
[2018-06-08 08:12] LABS: ABSOLUTE BASOPHILS # (AUTO) 0.1 10^3/uL (0.0-0.2); ABSOLUTE EOSINOPHILS # (AUTO) 0.2 10^3/uL (0.0-0.6); ABSOLUTE LYMPHOCYTES (AUTO) 1.5 10^3/uL (0.5-4.7); ABSOLUTE MONOCYTES (AUTO) 0.4 10^3/uL (0.1-1.4); ABSOLUTE NEUT (AUTO) 3.5 10^3/uL (1.7-8.2); BASOPHILS % (AUTO) 1.4 % (0-2); HEMATOCRIT 37.9 % (36.0-47.0); LYMPHOCYTES % (AUTO) 26.6 % (13-45); MEAN CORPUSCULAR HEMOGLOBIN 29.9 pg (27.0-33.4); MEAN CORPUSCULAR HGB CONC 34.2 g/dL (32.0-36.0); MEAN CORPUSCULAR VOLUME 88 fl (80-97); MONOCYTES % (AUTO) 6.8 % (3-13); PLATELET COUNT 252 10^3/uL (150-450); RED BLOOD COUNT 4.33 10^6/uL (3.72-5.28); RED CELL DISTRIBUTION WIDTH 13.3 % (11.5-14.0); SEGMENTED NEUTROPHILS % (AUTO) 61.2 % (42-78); TOTAL CELLS COUNTED % (AUTO) 100 %; WHITE BLOOD COUNT 5.7 10^3/uL (4.0-10.5)
[2018-06-08 08:34] LABS: ANION GAP 8 (5-19); BLOOD UREA NITROGEN 17 mg/dL (7-20); CALCIUM 10.3 mg/dL (8.4-10.2); CARBON DIOXIDE 28 mmol/L (22-30); CHLORIDE 104 mmol/L (98-107); GLUCOSE 107 mg/dL (75-110); POTASSIUM 3.7 mmol/L (3.6-5.0); SODIUM 139.9 mmol/L (137-145)
--- NOTE | 2018-06-08 11:10 | RADIOLOGY REPORT (SQ) ---
EXAM DESCRIPTION: CTA CHEST; CTA ABDOMEN/PELVIS W WO COMPLETED DATE/TIME: 06/08/2018 10:01 am REASON FOR STUDY: dissection study COMPARISON: None. CONTRAST TYPE AND DOSE: contrast/concentration: Isovue 350.00 mg/ml; Total Contrast Delivered: 53.0 ml; Total Saline Delivered: 79.0 ml RENAL FUNCTION: Deferred TECHNIQUE: CT angio of the chest performed using helical scanning technique with dynamic intravenous contrast injection. Images reviewed with lung, soft tissue and bone windows. Reconstructed coronal and sagittal MPR images reviewed. All images stored on PACS. CT angio of the abdomen and pelvis performed with intravenous and with oral contrastusing helical sca nning technique with dynamic intravenous contrast injection. Images reviewed with lung, soft tissue and bone windows. Reconstructed coronal and sagittal MPR images reviewed. Delayed images for evalua tion of the urinary system also acquired and evaluated. All images stored on PACS. All CT scanners at this facility use dose modulation, iterative reconstruction, and/or weight based d osing when appropriate to reduce radiation dose to as low as reasonably achievable (ALARA). [facility]: Dose Right [facility]: CareDose [facility]: Dose Right [facility]: Teradose 4D [facility]: Oasys Mobile RADIATION DOSE: CT Rad equipment meets quality standard of care and radiation dose reduction techniq ues were employed. CTDIvol: 10.6 - 15.2 mGy. DLP: 1406 mGy-cm. . Patient is allergic to shellfish. No immediate complications post IV contrast without steroid prep LIMITATIONS: None. FINDINGS: CHEST: LUNGS AND PLEURA: Bibasilar bandlike atelectasis. No fluffy alveolar infiltrates worrisome for pulmo nary edema or pneumonia. No pleural effusion. No pneumothorax. HILAR AND MEDIASTINAL STRUCTURES: No identified masses or abnormal nodes. HEART AND VASCULAR STRUCTURES: No thoracic aortic aneurysm or dissection. No central pulmonary embol i. No pericardial effusion. HARDWARE: None. THYROID AND OTHER SOFT TISSUES: Heterogeneous nodular thyroid BONES: No significant finding. OTHER: No other significant finding. ABDOMEN AND PELVIS: LIVER: Normal size. No masses. No dilated ducts. SPLEEN: Normal size. No focal lesions. PANCREAS: No masses. No significant calcifications. No adjacent inflammation or peripancreatic fluid collections. Pancreatic duct not dilated. GALLBLADDER: Surgically absent. ADRENAL GLANDS: No significant masses or asymmetry. RIGHT KIDNEY AND URETER: No solid masses. Subcentimeter cyst right mid-pole kidney. No significant calcification. No hydronephrosis or hydroureter. LEFT KIDNEY AND URETER: No solid masses. No significant calcification. No hydronephrosis or hydrouret er. AORTA AND VESSELS: No aneurysm. No dissection. Renal arteries, SMA, celiac without stenosis. RETROPERITONEUM: No retroperitoneal adenopathy, hemorrhage or masses. BOWEL AND PERITONEAL CAVITY: No oral contrast. No CT evidence of bowel obstruction or free intraperi toneal air or fluid. Scattered colonic diverticuli without CT signs of acute diverticulitis APPENDIX: Surgically absent ABDOMINAL WALL: No masses. No hernias. PELVIS: No mass or free fluid. Normal bladder. Small postmenopausal female pelvic organs are presen t. . BONES: No significant or acute findings. OTHER: No other significant finding. IMPRESSION: No CT evidence of thoracic or abdominal aortic dissection or aneurysm. Bibasilar atelectasis. Post cholecystectomy and appendectomy. TECHNICAL DOCUMENTATION: JOB ID: [id number] Quality ID # [id number]: Final reports with documentation of one or more dose reduction techniques (e.g., Au tomated exposure control, adjustment of the mA and/or kV according to patient size, use of iterative reconstruction technique) 2010 [employer]- All Rights Reserved Reading location - IP/workstation name: [email or web address]
--- NOTE | 2018-06-08 11:13 | EKG REPORT ---
SEVERITY:- ABNORMAL ECG - SINUS RHYTHM : Confirmed by: Juliocesar Delacruz 08-Jun-2018 11:12:24
[2018-06-08 14:11] VITALS: BP 153/70
== END 2018-06-08 15:10 | disposition home or self-care (01) ==
LOC: ER 07:00
DX: R07.9 Chest pain, unspecified (principal); R53.1 Weakness; R42 Dizziness and giddiness; R06.02 Shortness of breath; R20.2 Paresthesia of skin; I10 Essential (primary) hypertension
CPT/HCPCS: 93005; 99285; 96374; 36415; 85025; 80048; 84484; 71045; 71275; 74174; 93010; A9270; J2930

== ENCOUNTER → 2018-08-24 | Outpatient (CLI) | payer MEDICARE ==
--- NOTE | 2018-08-24 16:45 | RADIOLOGY REPORT (SQ) ---
EXAM DESCRIPTION: MRI LT LOWER EXTREMITY WITHOUT COMPLETED DATE/TIME: 08/24/2018 4:28 pm REASON FOR STUDY: M25.475 EFFUSION, LEFT FOOT M25.475 EFFUSION, LEFT FOOT COMPARISON: CT left foot and ankle 04/13/2018 TECHNIQUE: Left ankle images acquired and stored on PACS. Multiplanar images include fat sensitive s equences as T1, fluid sensitive sequences as FST2/STIR, cartilage sensitive sequences as FSPD, and gr adient echo sequences. LIMITATIONS: None. FINDINGS: BONE MARROW: No alteration of signal to suggest marrow replacement or edema. No occult fra cture. No large osteophytes. EFFUSIONS: No subtalar or tibiotalar effusions. No loose bodies. OSSEOUS ARTICULATIONS: Normal tibiotalar, subtalar, talonavicular and calcaneocuboid joints. TALAR DOME AND TIBIAL PLAFOND: Normal cartilage. No osteochondral defect. ACHILLES TENDON: Intact without partial or full-thickness tear. No adjacent bursal fluid or edema. TIBIALIS ANTERIOR TENDON: Intact without edema at the 1st MT attachment. TIBIALIS POSTERIOR TENDON: Normal morphology and no edema at the navicular attachment. No tendon miranda th fluid. FLEXOR HALLUCIS LONGUS AND FLEXOR DIGITORUM TENDONS: Normal morphology and no tendon sheath fluid. No edema of the os trigonum. PERONEUS LONGUS AND BREVIS TENDON: Normal morphology and no tendon sheath fluid. No subluxation. ATFL, CFL, PTFL: Intact. No thickening or signal alteration. No marcos-ligamentous fluid. DELTOID LIGAMENT: Visualized components intact. TARSAL TUNNEL: No masses. No muscle atrophy. SINUS TARSI: No fluid. No reactive marrow edema or erosions. PLANTAR FASCIA: No signal alteration or tear. ADJACENT SOFT TISSUES: No masses. OTHER: No other significant finding. IMPRESSION: NORMAL MRI OF THE ANKLE. TECHNICAL DOCUMENTATION: JOB ID: [id number] [employer]- All Rights Reserved Reading location - IP/workstation name: [email or web address]
== END ==
LOC: RAD 15:46
PROVIDERS: ATTEND Nurse Practitioner
DX: M25.475 Effusion, left foot (principal); R20.0 Anesthesia of skin; R20.2 Paresthesia of skin; M79.672 Pain in left foot

== ENCOUNTER 2018-12-22 18:34 | Emergency (ER) | payer MEDICARE ==
--- NOTE | 2018-12-22 19:13 | ER Document Report ---
ED Medical Screen (RME) - General Chief Complaint: Dizziness Stated Complaint: HEADACHE Time Seen by Provider: 12/22/18 19:11 Primary Care Provider: JAN COHEN NP [Primary Care Provider] - Follow up as needed Mode of Arrival: Ambulatory Information source: Patient Notes: 73-year-old female presented to ED for complaint of severe headache with vertigo. She states that she has a history of vertigo for 2-3 years and has been on meclizine but the meclizine is not working today she is taking it 2 times with no relief. 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 She is also had a gallbladder removed and a tubal ligation. She states she is also had a colonoscopy and endoscopy and she is getting worked up by snack bar attendant for gastritis and increase in stomach pains. Patient is al ert oriented respirations regular and unlabored and he can in full sentences. Patient is with her family. I have greeted and performed a rapid initial assessment of this patient. A comprehensive ED assessment and evaluation of the patient, analysis of test results and completion of medical decision making process will be conducted by an additional ED providers. TRAVEL OUTSIDE OF THE [place] IN LAST 30 DAYS: No - Related Data Allergies/Adverse Reactions: shellfish derived Allergy (Verified 12/22/18 18:37) Sulfa (Sulfonamide Antibiotics) Allergy (Verified 12/22/18 18:37) Past Medical History - Past Medical History Cardiac Medical History: Reports: Hx Hypercholesterolemia, Hx Hypertension Neurological Medical History: Denies: Hx Seizures Renal/ Medical History: Denies: Hx Peritoneal Dialysis GI Medical History: Reports: Hx Gastroesophageal Reflux Disease - History of peptic ulcer disease at age 19, Hx Ulcer - as teenager Musculoskeltal Medical History: Reports Hx Arthritis Past Surgical History: Reports: Hx Cholecystectomy, Hx Tubal Ligation, Other - Neck biopsy. Denies: Hx Hysterectomy Physical Exam - Vital signs Vitals: Temp Pulse Resp BP Pulse Ox 97.6 F 80 16 143/71 H 99 12/22/18 19:01 12/22/18 19:01 12/22/18 19:01 12/22/18 19:01 12/22/18 19:01 Course - Vital Signs Vital signs: Temp Pulse Resp BP Pulse Ox 97.6 F 80 16 143/71 H 99 12/22/18 19:01 12/22/18 19:01 12/22/18 19:01 12/22/18 19:01 12/22/18 19:01 Doctor's Discharge - Discharge Referrals: JAN COHEN NP [Primary Care Provider] - Follow up as needed
[2018-12-22 20:40] LABS: ABSOLUTE BASOPHILS # (AUTO) 0.1 10^3/uL (0.0-0.2); ABSOLUTE EOSINOPHILS # (AUTO) 0.2 10^3/uL (0.0-0.6); ABSOLUTE LYMPHOCYTES (AUTO) 2.6 10^3/uL (0.5-4.7); ABSOLUTE MONOCYTES (AUTO) 0.4 10^3/uL (0.1-1.4); ABSOLUTE NEUT (AUTO) 3.4 10^3/uL (1.7-8.2); EOSINOPHILS % (AUTO) 3.1 % (0-6); HEMATOCRIT 40.2 % (36.0-47.0); HEMOGLOBIN 13.8 g/dL (12.0-15.5); LYMPHOCYTES % (AUTO) 38.1 % (13-45); MEAN CORPUSCULAR HEMOGLOBIN 30.1 pg (27.0-33.4); MEAN CORPUSCULAR HGB CONC 34.4 g/dL (32.0-36.0); MEAN CORPUSCULAR VOLUME 88 fl (80-97); MONOCYTES % (AUTO) 6.6 % (3-13); PLATELET COUNT 283 10^3/uL (150-450); RED CELL DISTRIBUTION WIDTH 12.9 % (11.5-14.0); SEGMENTED NEUTROPHILS % (AUTO) 50.2 % (42-78); TOTAL CELLS COUNTED % (AUTO) 100 %; WHITE BLOOD COUNT 6.8 10^3/uL (4.0-10.5)
[2018-12-22 20:52] LABS: APPEARANCE,URINE SLIGHTLY-CLOUDY; BILIRUBIN,URINE NEGATIVE (NEGATIVE); COLOR,URINE YELLOW; GLUCOSE, URINE NEGATIVE (NEGATIVE); KETONES,URINE NEGATIVE (NEGATIVE); LEUKOCYTE ESTERASE,URINE MODERATE (NEGATIVE); NITRITE,URINE NEGATIVE (NEGATIVE); PROTEIN,URINE NEGATIVE (NEGATIVE); URINE SPECIFIC GRAVITY 1.012; UROBILINOGEN,URINE NEGATIVE mg/dL (<2.0)
[2018-12-22 20:58] LABS: ALANINE AMINOTRANSFERASE 44 U/L (9-52); ALBUMIN 4.6 g/dL (3.5-5.0); ALKALINE PHOSPHATASE 117 U/L (38-126); ANION GAP 10 (5-19); ASPARTATE AMINO TRANSFERASE 43 U/L (14-36); BILIRUBIN,DIRECT 0.3 mg/dL (0.0-0.4); BILIRUBIN,TOTAL 0.9 mg/dL (0.2-1.3); BLOOD UREA NITROGEN 19 mg/dL (7-20); CALCIUM 10.9 mg/dL (8.4-10.2); CARBON DIOXIDE 33 mmol/L (22-30); CHLORIDE 100 mmol/L (98-107); GLUCOSE 101 mg/dL (75-110); POTASSIUM 3.7 mmol/L (3.6-5.0); SODIUM 142.5 mmol/L (137-145); TOTAL PROTEIN 8.1 g/dL (6.3-8.2)
--- NOTE | 2018-12-22 23:29 | RADIOLOGY REPORT (SQ) ---
EXAM DESCRIPTION: CT HEAD WITHOUT IV CONTRAST COMPLETED DATE/TME: 12/22/2018 19:12 CLINICAL HISTORY: 73 years, Female, History of vertigo severe headache COMPARISON: 04/25/2018 CT TECHNIQUE: 186 Images stored on PACS. All CT scanners at this facility use dose modulation, iterative reconstruction, and/or weight based dosing when appropriate to reduce radiation dose to as low as reasonably achievable (ALARA). [facility]: Dose Right [facility]: CareDose [facility]: Dose Right [facility]: Teradose 4D [facility]: [employer] LIMITATIONS: None. FINDINGS: Globes are intact. Calcified nodular focus of the left maxillary sinus. No displaced or depressed skull fracture. No intra or extra-axial hemorrhage. CT is limited for evaluation of acute infarct. No CT evidence for large or territorial acute infarct. No mass or midline shift. IMPRESSION: Negative for acute intracranial abnormality TECHNICAL DOCUMENTATION: Quality ID # [id number]: Final reports with documentation of one or more dose reduction techniques (e.g., Automated exposure control, adjustment of the mA and/or kV according to patient size, use of iterative reconstruction technique) copyright 2011 [employer]- All Rights Reserved
[2018-12-22] MEDS ORDERED: DIAZEPAM INJ 10 MG/2 ML DISP.SYRIN IV ONE (23:48)
[2018-12-22] MEDS ORDERED: METOCLOPRAMIDE HCL INJ/PF 10 MG/2 ML SDV IV ONE (23:48)
[2018-12-22] MEDS ORDERED: NORMAL SALINE 500 ML IV ONE (23:48)
[2018-12-22] MEDS ORDERED: LIDOCAINE 1%/EPINEPHRINE INJ 20 ML VIAL ONE (23:49)
[2018-12-22] MEDS ORDERED: ONDANSETRON HCL INJ/PF 4 MG/2 ML SDV ONE (23:49)
[2018-12-22] MEDS ORDERED: KETAMINE HCL INJ 500 MG/10 ML VIAL ONE (23:49)
--- NOTE | 2018-12-23 02:21 | ER Document Report ---
ED General - General Chief Complaint: Dizziness Stated Complaint: HEADACHE Time Seen by Provider: 12/22/18 19:11 Primary Care Provider: JAN COHEN NP [Primary Care Provider] - 12/26/18 Mode of Arrival: Ambulatory Notes: Patient is a 73-year-old female who presents with complaint of dizziness and headache. Patient has a long history of vertigo. She is been admitted for for 7 years ago when she had headache and dizziness that was this bad. She is followed by ENT physician. She said physical therapy to try to help with her vertigo as well. She said she took a meclizine several times today but it was not helping and therefore she came to the ER. She says she has had these exact symptoms in the past. She is a usually less mild however she is had them this bad in the past and again has sometimes required admission because of it. She denies any weakness or numbness into extremities. No recent trauma or injury. No other complaints at this time. TRAVEL OUTSIDE OF THE [place] IN LAST 30 DAYS: No - Related Data Allergies/Adverse Reactions: shellfish derived Allergy (Verified 12/22/18 18:37) Sulfa (Sulfonamide Antibiotics) Allergy (Verified 12/22/18 18:37) Past Medical History - General Information source: Patient - Social History Smoking Status: Never Smoker Frequency of alcohol use: None Drug Abuse: None Family History: Reviewed & Not Pertinent Patient has suicidal ideation: No Patient has homicidal ideation: No - Past Medical History Cardiac Medical History: Reports: Hx Hypercholesterolemia, Hx Hypertension Neurological Medical History: Denies: Hx Seizures Renal/ Medical History: Denies: Hx Peritoneal Dialysis GI Medical History: Reports: Hx Gastroesophageal Reflux Disease - History of peptic ulcer disease at age 19, Hx Ulcer - as teenager Musculoskeletal Medical History: Reports Hx Arthritis Past Surgical History: Reports: Hx Cholecystectomy, Hx Tubal Ligation, Other - Neck biopsy. Denies: Hx Hysterectomy Review of Systems - Review of Systems Notes: My Normal Review Basic REVIEW OF SYSTEMS: CONSTITUTIONAL : Denies fever, chills, or sweats. Denies recent illness. EENT: Denies eye, ear, throat, or mouth pain or symptoms. Denies nasal or sinus congestion. RESPIRATORY: Denies cough, cold, or chest congestion. Denies shortness of breath, difficulty breathing, or wheezing. GASTROINTESTINAL: Denies abdominal pain. Denies nausea, vomiting, or diarrhea. MUSCULOSKELETAL: Denies neck or back pain or joint pain or swelling. SKIN: Denies rash or skin lesions. NEUROLOGICAL: Denies altered mental status or loss of consciousness. Has a headache. Some vertigo. Denies weakness or paralysis or loss of use of either side. Denies problems with gait or speech. Denies sensory or motor loss. ALL OTHER SYSTEMS REVIEWED AND NEGATIVE. Physical Exam - Vital signs Vitals: Temp Pulse Resp BP Pulse Ox 97.6 F 80 16 143/71 H 99 12/22/18 19:01 12/22/18 19:01 12/22/18 19:01 12/22/18 19:01 12/22/18 19:01 - Notes Notes: General Appearance: Well nourished, alert, cooperative, no acute distress, no obvious discomfort. Vitals: reviewed, See vital signs table. Head: no swelling or tenderness to the head Eyes: PERRL, EOMI, Conjuctiva clear Mouth: No decreasd moisture Throat: No tonsillar inflammation, No airway obstruction, No lymphadenopathy Lungs: No wheezing, No rales, No rhonci, No accessory muscle use, good air exchange bilaterally. Heart: Normal rate, Regular rythm, No murmur, no rub Abdomen: Normal BS, soft, No rigidity, No abdominal tenderness, No guarding, no rebound Extremities: strength 5/5 in all extremities, good pulses in all extremities, no swelling or tenderness in the extremities, no edema. Skin: warm, dry, appropriate color, no rash Neuro: speech clear, oriented x 3, normal affect, responds appropriately to questions. Symmetric facial movement. Normal sensation to face. Patient has some mild horizontal nystagmus on lateral gaze. No vertical nystagmus. Good strength in all 4 extremities. Good distal sensation. Course - Re-evaluation Re-evalutation: 12/23/18 02:17 Patient is currently sleeping and resting comfortably since receiving pain medication. I will reassess patient later to make sure headache and dizziness is improved. 12/23/18 04:29 Since headache and dizziness are now both much improved. She looks well. Feel she safe to be discharged home. I will write a prescription for Valium 2 mg tablets. Informed her that she does take the Valium to make sure she is resting and not up and driving or walk around after taking the medicine will make her sleepy. Patient is understanding of this. I strongly encouraged her return to ER if she has recurrent worsening headache, current dizziness not responding to meclizine or Valium, or she feels that she is worsening in any way. Patient agrees with plan and will be discharged home. Dictation of this chart was performed using voice recognition software; therefore, there may be some unintended grammatical errors. - Vital Signs Vital signs: Temp Pulse Resp BP Pulse Ox 97.6 F 80 16 143/71 H 99 12/22/18 19:01 12/22/18 19:01 12/22/18 19:01 12/22/18 19:01 12/22/18 19:01 - Laboratory Result Diagrams: 12/22/18 20:13 12/22/18 20:13 Laboratory results interpreted by me: 12/22/18 12/22/18 20:13 20:13 Carbon Dioxide 33 H Calcium 10.9 H AST 43 H Urine Blood SMALL H Ur Leukocyte Esterase MODERATE H Discharge - Discharge Clinical Impression: Vertigo Headache Qualifiers: Headache type: unspecified Headache chronicity pattern: acute headache Intractability: not intractable Qualified Code(s): R51 - Headache Condition: Good Disposition: HOME, SELF-CARE Additional Instructions: CT scan of your head and your blood work did not show any concerning findings. We are glad that you are feeling some better. When your vertigo is not responding to meclizine you can take 1 of the Valium tablets. The Valium will make you little bit sleepy so please lay down in bed in a dark room and rest after taking Valium. Do not drive or operate machinery after taking it. Please follow-up closely with your doctor in the next couple days. Please return to the ER immediately if you have recurrent worsening headache, recurrent vertigo or spinning sensation not improved with your medications, weakness or numbness into your extremities, or if you are feeling worse in any way. Prescriptions: Diazepam [Valium 2 mg Tablet] 2 mg PO Q6HP PRN #15 tablet PRN Reason: vertigo Referrals: JAN COHEN NP [Primary Care Provider] - 12/26/18
[2018-12-23] MEDS ORDERED: FENTANYL CITRATE INJ/PF 100 MCG/2 ML AMPUL IV ONE (02:54)
[2018-12-23] MEDS ORDERED: KETOROLAC TROMETHAMINE INJ/PF 30 MG/1 ML SDV IV ONE (02:54)
[2018-12-23 04:48] VITALS: BP 147/75
== END 2018-12-23 04:51 | disposition home or self-care (01) ==
LOC: ER 18:34
DX: R42 Dizziness and giddiness (principal); R51 Headache; I10 Essential (primary) hypertension
CPT/HCPCS: 99284; 96361; 96374; 96375; 36415; 85025; 80053; 81001; 70450; J3360; J3010; J1885; J2765; J7040

== ENCOUNTER → 2018-12-22 | Outpatient (CLI) | payer MEDICARE ==
--- NOTE | 2018-12-22 14:45 | WOMENS IMAGING REPORT ---
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 TECHNIQUE: Dynamic and static mathis-scale images acquired of the thyroid gland. Selected additional c olor/power Doppler images recorded. All images stored to PACS. LIMITATIONS: None. FINDINGS: RIGHT LOBE: Prominent, 5.3 x 2.2 x 2.4 cm. Heterogeneous echotexture. Multiple definable nodules. The largest measures 2.3 cm. LEFT LOBE: Normal size, 4.7 x 1.9 x 1.9 cm. Heterogeneous echotexture. Multiple definable nodules. The largest measures 2.6 x 1.1 x 1.9 cm. ISTHMUS: Normal size, 3.5 mm. Homogeneous echotexture. No cystic or solid masses. OTHER: No other significant finding. IMPRESSION: Multinodular goiter. TECHNICAL DOCUMENTATION: JOB ID: [id number] [employer]- All Rights Reserved Reading location - IP/workstation name: [email or web address]
== END ==
LOC: WI 10:51
PROVIDERS: ATTEND Nurse Practitioner
DX: E04.2 Nontoxic multinodular goiter (principal)
CPT/HCPCS: 76536

== ENCOUNTER → 2019-06-09 | Outpatient (CLI) | payer MEDICARE ==
--- NOTE | 2019-06-09 13:44 | WOMENS IMAGING REPORT ---
EXAM DESCRIPTION: 3D SCREENING MAMMO BILAT COMPLETED DATE/TIME: 06/09/2019 10:07 am REASON FOR STUDY: Z12.31 SCREENING MAMMO Z12.31 ENCNTR SCREEN MAMMOGRAM FOR MALIGNANT NEOPLASM OF B RE COMPARISON: 2018 EXAM PARAMETERS: Views: Standard craniocaudal and mediolateral oblique views of each breast recorded using digital acquisition and breast tomosynthesis. Read with the assistance of CAD. .REPLACED BY [facility] - [employer] Assistant Sales Center Manager Version 9.2 LIMITATIONS: None. FINDINGS: No suspicious masses, suspicious calcifications or architectural distortion. No areas of c oncern. IMPRESSION: NEGATIVE MAMMOGRAM. BIRADS 1. BREAST DENSITY: b. There are scattered areas of fibroglandular density. BIRAD: ASSESSMENT: 1 NEGATIVE RECOMMENDATION: ROUTINE SCREENING Please continue yearly bilateral screening mammography/tomosynthesis in June 2020. COMMENT: The patient has been notified of the results by letter per MQSA requirements. Additional no tification policies are in place for contacting patient with suspicious or incomplete findings. Quality ID #225: [employer] recommends an annual screening mammogram for women aged 40 years or over. This facility utilizes a reminder system to ensure that all patients receive reminder letters, and/or direct phone calls for appointments. This includes reminders for routine scr eening mammograms, diagnostic mammograms, or other Breast Imaging Interventions when appropriate. Th is patient will be placed in the appropriate reminder system. TECHNICAL DOCUMENTATION: FINDING NUMBER: (1) ASSESSMENT: (1) JOB ID: [id number] [employer]- All Rights Reserved Reading location - IP/workstation name: [email or web address]
== END ==
LOC: WI 09:30
PROVIDERS: ATTEND Nurse Practitioner
DX: Z12.31 Encounter for screening mammogram for malignant neoplasm of breast (principal)
CPT/HCPCS: 77063; 77067

== ENCOUNTER 2019-09-23 19:38 | Emergency (ER) | payer MEDICARE ==
[2019-09-23 19:51] VITALS: BP 185/71
[2019-09-23] MEDS ORDERED: CLINDAMYCIN HCL 150 MG CAPSULE PO ONE (20:01)
--- NOTE | 2019-09-23 20:07 | ER Document Report ---
HPI - HPI Patient complains to provider of: facial swelling Time Seen by Provider: 09/23/19 19:42 Onset: This evening Onset/Duration: Sudden Quality of pain: Achy Pain Level: 2 Context: Patient states that she was eating dinner and then started to develop left-sided facial swelling. Patient states that she has had an acute allergic reaction in the past but states that today symptoms are nothing like that. Patient denies any difficulty breathing or swallowing. Associated Symptoms: denies: Fever, Nausea, Vomiting Exacerbated by: Denies Relieved by: Denies Similar symptoms previously: No Recently seen / treated by doctor: No - ROS ROS below otherwise negative: Yes Systems Reviewed and Negative: Yes All other systems reviewed and negative - CONSTITUTIONAL Constitutional: DENIES: Fever, Chills - EENT EENT: DENIES: Sore Throat Notes: Left facial swelling - RESPIRATORY Respiratory: DENIES: Trouble Breathing, Coughing - GASTROINTESTINAL Gastrointestinal: DENIES: Nausea, Patient vomiting - DERM Skin Color: Normal Skin Problems: None Past Medical History - General Information source: Patient - Social History Smoking Status: Never Smoker Frequency of alcohol use: None Drug Abuse: None Family History: Reviewed & Not Pertinent Patient has suicidal ideation: No Patient has homicidal ideation: No - Past Medical History Cardiac Medical History: Reports: Hx Hypercholesterolemia, Hx Hypertension Neurological Medical History: Denies: Hx Seizures Renal/ Medical History: Denies: Hx Peritoneal Dialysis GI Medical History: Reports: Hx Gastroesophageal Reflux Disease - History of pe ptic ulcer disease at age 19, Hx Ulcer - as teenager Musculoskeletal Medical History: Reports Hx Arthritis Past Surgical History: Reports: Hx Cholecystectomy, Hx Tubal Ligation, Other - Neck biopsy. Denies: Hx Hysterectomy Vertical Provider Document - CONSTITUTIONAL Agree With Documented VS: Yes Exam Limitations: No Limitations General Appearance: WD/WN, No Apparent Distress - INFECTION CONTROL TRAVEL OUTSIDE OF THE [place] IN LAST 30 DAYS: No - HEENT HEENT: Atraumatic, Normocephalic Notes: Patient with swelling and tenderness over the parotid gland on the left side. Patient with prominence noted to the Stensen's duct intraorally. - NECK Neck: Normal Inspection - RESPIRATORY Respiratory: Breath Sounds Normal, No Respiratory Distress - CARDIOVASCULAR Cardiovascular: Regular Rate, Regular Rhythm - MUSCULOSKELETAL/EXTREMETIES Musculoskeletal/Extremeties: MAEW - NEURO Level of Consciousness: Awake, Alert, Appropriate Motor/Sensory: No Motor Deficit - DERM Integumentary: Warm, Dry Course - Re-evaluation Re-evalutation: 09/23/19 20:05 Palpation of the Stensen's duct noted spontaneous drainage of saliva. Additional saliva was able to be drained through massage of the parotid gland. Patient without any fever and otherwise nontoxic in appearance. Will cover with antibiotics and encourage use of sour candies to promote additional drainage. Good return precautions discussed with patient. Patient does have an upcoming appointment with an service learning coordinator. Patient encouraged to have her ENT doctor further evaluate this problem. - Vital Signs Vital signs: Temp Pulse Resp BP Pulse Ox 97.2 F 87 16 185/71 H 96 09/23/19 19:43 09/23/19 19:43 09/23/19 19:43 09/23/19 19:43 09/23/19 19:43 Discharge - Discharge Clinical Impression: Swelling of left parotid gland Condition: Stable Disposition: HOME, SELF-CARE Instructions: Acute Parotid Gland Swelling ([facility]), Clindamycin ([facility]) Additional Instructions: Return immediately for any new or worsening symptoms: Fever, redness, increased swelling, any new or worsening symptoms Followup with your primary care provider, call tomorrow to make a followup appointment Follow-up with your service learning coordinator as planned Increase oral fluids and stay well hydrated Massage parotid gland to help with salivary drainage Prescriptions: Clindamycin HCl [Cleocin 300 mg Capsule] 300 mg PO TID #21 capsule Referrals: JAN COHEN NP [Primary Care Provider] - Follow up as needed [facility] [Provider Group] - Follow up as needed
== END 2019-09-23 20:05 | disposition home or self-care (01) ==
LOC: ER 19:38
DX: R59.0 Localized enlarged lymph nodes (principal); E78.00 Pure hypercholesterolemia, unspecified; I10 Essential (primary) hypertension; Z90.49 Acquired absence of other specified parts of digestive tract; Z98.51 Tubal ligation status
CPT/HCPCS: 99283; A9270

== ENCOUNTER 2020-03-05 12:25 | Emergency (ER) | payer MEDICARE ==
[2020-03-05 12:36] VITALS: BP 149/79
[2020-03-05] MEDS ORDERED: HYDROCODONE/ACETAMINOPHEN 10-325 MG TABLET PO ONE (13:26)
[2020-03-05] MEDS ORDERED: DIPH/PERTUSS(ACELL)/TETANUS VAC/PF 0.5 ML SYR (>=10YO) IM ONE (13:32)
--- NOTE | 2020-03-05 14:04 | RADIOLOGY REPORT (SQ) ---
EXAM DESCRIPTION: FOOT RIGHT COMPLETE IMAGES COMPLETED DATE/TIME: 03/05/2020 1:45 pm REASON FOR STUDY: foot trauma s/p 2x4 landing on foot, + pain COMPARISON: None. NUMBER OF VIEWS: Three views. TECHNIQUE: AP, lateral and oblique radiographic images acquired of the right foot. LIMITATIONS: None. FINDINGS: MINERALIZATION: Normal. BONES: No acute fracture or dislocation. No worrisome bone lesions. JOINTS: No effusions. SOFT TISSUES: Swelling over the dorsal forefoot. No foreign body. OTHER: No other significant finding. IMPRESSION: No fracture. TECHNICAL DOCUMENTATION: JOB ID: [id number] [employer]- All Rights Reserved Reading location - IP/workstation name: [email or web address]
--- NOTE | 2020-03-05 14:06 | ER Document Report ---
ED Extremity Problem, Lower - General Chief Complaint: Foot Injury Stated Complaint: RIGHT FOOT INJURY Time Seen by Provider: 03/05/20 13:24 Primary Care Provider: JAN COHEN NP [Primary Care Provider] - Follow up as needed JENNIFER JAMIL MD [ACTIVE STAFF] - Follow up in 3-5 days Mode of Arrival: Medic Information source: Patient TRAVEL OUTSIDE OF THE [place] IN LAST 30 DAYS: No - HPI Notes: 74-year-old female presents to the emergency room for complaints of right foot pain after a stack of 2 by fours at [facility] fell on her right foot approximately an hour ago. unable to bear full weight. pain is 7/10, throbbing. 2 scant puncture wounds to dorsal aspect of foot. Noted ecchymosis and swelling to dorsal aspect of foot. Denies any other area of injury. Tetanus is out of date. Denies fevers, chills, chest pain,palpitations, shortness of breath, dyspnea, nausea, vomiting, diarrhea, abdominal pain, hematuria,blurred vision, double vision, loss of vision, speech changes, LH, dizziness, syncope, headaches, wheezing, ST, URI, neck pain, weakness, bowel or bladder dysfunction, saddle anesthesia, numbness or tingling in bilateral upper or lower extremities equally, muscle paralysis, weakness in bilateral upper or lower extremities equally or rash. Denies IV drug use. MEDICATIONS: I agree with the patient medications as charted by the RN. ALLERGIES: I agree with the allergies as charted by the RN. PAST MEDICAL HISTORY/PAST SURGICAL HISTORY: Reviewed and agree as charted by RN. SOCIAL HISTORY: Reviewed and agree as charted by RN. FAMILY HISTORY: No significant familial comorbid conditions directly related to patient complaint EXAM: Reviewed vital signs as charted by RN. REVIEW OF SYSTEMS:reviewed vital signs by RN CONSTITUTIONAL : Denies fever, chills, or sweats. Denies recent illness. EENT: Denies eye, ear, throat, or mouth pain or symptoms. Denies nasal or sinus congestion or discharge. Denies throat, tongue, or mouth swelling or difficulty swallowing. CARDIOVASCULAR: Denies chest pain. Denies palpitations or racing or irregular heart beat. Denies ankle edema. RESPIRATORY: Denies cough, cold, or chest congestion. Denies shortness of breath, difficulty breathing, or wheezing. GASTROINTESTINAL: Denies abdominal pain or distention. Denies nausea, vomiting, or diarrhea. Denies blood in vomitus, stools, or per rectum. Denies black, tarry stools. Denies constipation. GENITOURINARY: Denies difficulty urinating, painful urination, burning, frequency, blood in urine, or discharge. FEMALE GENITOURINARY: Denies vaginal bleeding, heavy or abnormal periods, irregular periods. Denies vaginal discharge or odor. MUSCULOSKELETAL: Denies back or neck pain or stiffness. Denies joint pain or swelling. Swelling, ecchymosis, tenderness to palpation on dorsal aspect of right foot SKIN: Denies rash, lesions or sores. HEMATOLOGIC : Denies easy bruising or bleeding. LYMPHATIC: Denies swollen, enlarged glands. NEUROLOGICAL: Denies confusion or altered mental status. Denies passing out or loss of consciousness. Denies dizziness or lightheadedness. Denies headache. Denies weakness or paralysis or loss of use of either side. Denies problems with gait or speech. Denies sensory loss, numbness, or tingling. Denies seizures. PSYCHIATRIC: Denies anxiety or stress. Denies depression, suicidal ideation, or homicidal ideation. ALL OTHER SYSTEMS REVIEWED AND NEGATIVE. PHYSICAL EXAMINATION: GENERAL: Well-appearing, well-nourished and in no acute distress. HEAD: Atraumatic, normocephalic. EYES: Pupils equal round and reactive to light, extraocular movements intact, conjunctiva are normal. ENT: Nares patent, oropharynx clear without exudates. Moist mucous membranes. NECK: Normal range of motion, supple without lymphadenopathy LUNGS: Breath sounds clear to auscultation bilaterally and equal. No wheezes rales or rhonchi. HEART: Regular rate and rhythm without murmurs ABDOMEN: Soft, nontender, nondistended abdomen. No guarding, no rebound. No masses appreciated. Female : deferred Musculoskeletal: Normal range of motion, no pitting or edema. No cyanosis. NEUROLOGICAL: Cranial nerves grossly intact. Normal speech, normal gait. Normal sensory, motor exams PSYCH: Normal mood, normal affect. SKIN: Warm, Dry, normal turgor, no rashes or lesions noted. Right foot dorsal aspect with ecchymosis, swelling with 2 superficial puncture wounds. rigght foot with STS and tenderness on 2nd-5th metatarsal bones with palpation. Unable to palpate a step-off. No open lesions. squeeze test negative. dtr +2 BLE. Limited APROM. distal pulses + 2 in BUE. full motor and sensory function. No vascular compromise. Ankle exam within normal limits. No noted lesions, ulcers of the skin Dictation was performed using [employer] voice recognition software - Related Data Allergies/Adverse Reactions: shellfish derived Allergy (Verified 03/05/20 13:18) Sulfa (Sulfonamide Antibiotics) Allergy (Verified 03/05/20 13:18) wheat mites Allergy (Uncoded 03/05/20 13:18) Past Medical History - Social History Smoking Status: Never Smoker Chew tobacco use (# tins/day): No Drug Abuse: None Family History: Reviewed & Not Pertinent Patient has homicidal ideation: No - Past Medical History Cardiac Medical History: Reports: Hx Hypercholesterolemia, Hx Hypertension Neurological Medical History: Denies: Hx Seizures Renal/ Medical History: Denies: Hx Peritoneal Dialysis GI Medical History: Reports: Hx Gastroesophageal Reflux Disease - History of peptic ulcer disease at age 19, Hx Ulcer - as teenager Musculoskeletal Medical History: Reports Hx Arthritis Past Surgical History: Reports: Hx Cholecystectomy, Hx Tubal Ligation, Other - Neck biopsy. Denies: Hx Hysterectomy Physical Exam - Vital signs Vitals: Temp Pulse Resp BP Pulse Ox 98.8 F 86 14 149/79 H 97 03/05/20 12:30 03/05/20 12:30 03/05/20 12:30 03/05/20 12:30 03/05/20 12:30 Course - Re-evaluation Re-evalutation: 03/05/20 16:16 Afebrile vital stable no distress. Nurses notes reviewed. X-ray of right foot negative for any fracture dislocation no foreign body. Discussed with patient that she does need to repeat x-ray within 5 days when swelling has gone down to look for any occult fractures. Patient placed in a postop shoe and crutches. Advised to follow-up with automotive product specialist. Keep elevated the level of heart when not ambulating to help with swelling. Advised to not drink, operate heavy machinery or drive while taking narcotic pain medication states can cause sedation impairment of cognitive function. Advised to follow-up with primary care provider within the next 24 to 48 hours. After performing a Medical Screening Examination, I estimate there is LOW risk for OPEN FRACTURE, COMPARTMENT SYNDROME, DEEP VENOUS THROMBOSIS, ACUTE TENDON RUPTURE, or NEUROVASCULAR INJURY thus I consider the discharge disposition reasonable. I have reevaluated this patient multiple times and no significant life threatening changes are noted. The patient and I have discussed the diagnosis and risks, and we agree with discharging home to closely follow-up with their primary doctor or the referral orthopedist with the understanding that symptoms and presentations can change. We also discussed returning to the Emergency Department immediately if new or worsening symptoms occur. We have discussed the symptoms which are most concerning (e.g., changing or worsening pain, numbness, weakness) that necessitate immediate return - Vital Signs Vital signs: Temp Pulse Resp BP Pulse Ox 98.8 F 86 14 149/79 H 97 03/05/20 12:30 03/05/20 12:30 03/05/20 12:30 03/05/20 12:30 03/05/20 12:30 Discharge - Discharge Clinical Impression: Right foot sprain Condition: Stable Disposition: HOME, SELF-CARE Instructions: Use of Crutches ([facility]), Sprain ([facility]) Additional Instructions: Your x-ray does not show any acute fracture. You have a sprained foot. Keep the area elevated, apply ice 20 minutes every 2 hours, and use crutches as needed. You should take ibuprofen 600 mg every 6 hours as needed for pain. Do not drive, drink alcohol or operate machinery while taking narcotic medication because sedation or impairment of cognitive function please return if you have worsening pain and swelling, fever greater than 101, you notice spreading redness from the area, or have any other symptoms that are concerning to you. Please follow-up with orthopedic surgery if your symptoms have not improved in the next 2-3 weeks. Return immediately for any new or worsening symptoms. Follow up with primary care provider, call tomorrow to make followup appointment. Referrals: JAN COHEN NP [Primary Care Provider] - Follow up as needed JENNIFER JAMIL MD [ACTIVE STAFF] - Follow up in 3-5 days
[2020-03-05] MEDS ORDERED: HYDROCODONE/ACETAMINOPHEN 5-325 MG (6 TAB/ER DISP) PO PRN (14:07)
== END 2020-03-05 15:01 | disposition home or self-care (01) ==
LOC: ER 12:25
DX: S93.601A Unspecified sprain of right foot, initial encounter (principal); M79.671 Pain in right foot; S91.331A Puncture wound without foreign body, right foot, initial encounter; W20.8XXA Other cause of strike by thrown, projected or falling object, initial encounter; Y92.512 Supermarket, store or market as the place of occurrence of the external cause; Z23 Encounter for immunization; I10 Essential (primary) hypertension; Z91.013 Allergy to seafood; Z88.2 Allergy status to sulfonamides; Z91.048 Other nonmedicinal substance allergy status
CPT/HCPCS: 99283; 90471; 73630; 90715; A9270 ×2

== ENCOUNTER 2020-03-07 12:29 | Emergency (ER) | payer MEDICARE ==
[2020-03-07] MEDS ORDERED: CEPHALEXIN 500 MG CAPSULE PO ONE (12:46)
--- NOTE | 2020-03-07 12:51 | ER Document Report ---
HPI - HPI Time Seen by Provider: 03/07/20 12:42 Pain Level: Denies Notes: CHIEF COMPLAINT: Reevaluation of right foot injury HPI: 74-year-old female presenting back to the emergency department for reevaluation of a wound on the right foot. Patient states she was shopping at [employer] when some 2 by fours fell onto her foot cutting the top of the foot. Patient states she was seen 3 days ago in the emergency department had an x-ray that she says they were unsure of whether she may have broken something but now is concerned about the wound on top of the foot because there is some redness bruising and swelling still. Has not yet followed up with her PCP but is due to see him on Wednesday. No fever ROS: See HPI - all other systems were reviewed and are otherwise negative Constitutional: no fever Integumentary: + rash Allergy: no hives Musculoskeletal: + extremity pain or swelling Neurological: no numbness/tingling, no weakness MEDICATIONS: I agree with the patient medications as charted by the RN. ALLERGIES: I agree with the allergies as charted by the RN. PAST MEDICAL HISTORY/PAST SURGICAL HISTORY: Reviewed and agree as charted by RN. SOCIAL HISTORY: Reviewed and agree as charted by RN. FAMILY HISTORY: No significant familial comorbid conditions directly related to patient complaint EXAM: Reviewed vital signs as charted by RN. CONSTITUTIONAL: Alert and oriented and responds appropriately to questions. Well-appearing; well-nourished HEAD: Normocephalic; atraumatic EYES:Conjunctivae clear, sclerae non-icteric ENT: normal nose; no rhinorrhea; moist mucous membranes NECK: Supple without meningismus CARD: symmetric distal pulses RESP: Normal chest excursion without splinting or tachypnea ABD/GI; non-distended. BACK: The back appears normal EXT: Normal ROM in all joints; there is soft tissue swelling over the dorsal aspect of the right foot. There is bruising and ecchymosis present. Mild tenderness on palpation. There is a linear wound over the dorsal aspect of the distal right foot with some surrounding erythema but no visible discharge or fluctuant areas. Dorsalis pedis and posterior tibial pulses are present in the right foot and ankle. Sensation intact in the toes with capillary refill less than 3 seconds SKIN: Normal color for age and race; warm; dry; good turgor NEURO: Moves all extremities equally; Motor and sensory function intact PSYCH: The patient's mood and manner are appropriate. Grooming and personal hyg iene are appropriate. MDM: 74-year-old female with a wound over the dorsal aspect of the right foot likely some mild erythema and possible early infection. I did review the x-ray report and evaluated her images myself and I do not visualize a definitive fracture in the foot. She has an appointment in 3 days with her PCP for wound check. Will start patient on Keflex she was updated on her tetanus vaccination. She has a postop shoe and crutches at home and does not require further pain medication per the patient - REPRODUCTIVE Reproductive: DENIES: : Past Medical History - Social History Smoking Status: Never Smoker Chew tobacco use (# tins/day): No Frequency of alcohol use: None Drug Abuse: None Family History: Reviewed & Not Pertinent Patient has homicidal ideation: No - Past Medical History Cardiac Medical History: Reports: Hx Hypercholesterolemia, Hx Hypertension Neurological Medical History: Denies: Hx Seizures Renal/ Medical History: Denies: Hx Peritoneal Dialysis GI Medical History: Reports: Hx Gastroesophageal Reflux Disease - History of peptic ulcer disease at age 19, Hx Ulcer - as teenager Musculoskeletal Medical History: Reports Hx Arthritis Past Surgical History: Reports: Hx Cholecystectomy, Hx Tubal Ligation, Other - Neck biopsy. Denies: Hx Hysterectomy Vertical Provider Document - INFECTION CONTROL TRAVEL OUTSIDE OF THE [place] IN LAST 30 DAYS: No Course - Vital Signs Vital signs: Temp Pulse Resp BP Pulse Ox 98.5 F 03/07/20 12:39 Discharge - Discharge Clinical Impression: Post-traumatic wound infection Condition: Stable Disposition: HOME, SELF-CARE Instructions: Wound Infection ([facility]) Additional Instructions: Clean the wound area daily with soap and water apply a small amount of antibiotic ointment until healed. Take the antibiotics as prescribed. Ice and elevate the foot as much as possible to help with swelling. Use the Sunny wrap to also help with swelling. You may continue to weight-bear as tolerated. X-ray imaging did not show evidence of a fracture or broken bone. Follow-up with your primary care provider on Wednesday for recheck of the foot and wound. Return for any concerns Prescriptions: Cephalexin Monohydrate [Keflex 500 mg Capsule] 500 mg PO Q6H 7 Days #28 capsule Referrals: JAN COHEN NP [Primary Care Provider] - Follow up as needed
== END 2020-03-07 13:07 | disposition home or self-care (01) ==
LOC: ER 12:29
DX: T14.8XXD Other injury of unspecified body region, subsequent encounter (principal); L08.9 Local infection of the skin and subcutaneous tissue, unspecified; W20.8XXD Other cause of strike by thrown, projected or falling object, subsequent encounter; E78.00 Pure hypercholesterolemia, unspecified; I10 Essential (primary) hypertension; Z90.49 Acquired absence of other specified parts of digestive tract; Z98.51 Tubal ligation status
CPT/HCPCS: 99282; A9270